=== PATIENT | female | born 1930 | race Caucasian/White ===

== ENCOUNTER 2016-10-24 09:45 | Emergency (ER) | payer OTHER ==
[2016-10-24 09:52] VITALS: TEMP 97.8; BMI 30.1
--- NOTE | 2016-10-24 10:07 | PDOC ---
History of Present Illness - General History Source: Patient, Old Records Exam Limitations: No Limitations - History of Present Illness Initial Comments: 10/24/16 10:15 The patient is a 86 year old female, with a significant past medical history of GERD, HTN, HLD, colon CA s/p removal of tumor and anxiety, who presents to the emergency department with shortness of breath since yesterday and a dry intermittent cough for a few weeks. She denies shortness of breath on exertion or orthopnea. She notes that she does have chest discomfort which she describes as a heaviness. She notes that she had cold symptoms last month. She denies any sick contacts or recent travel. She notes that she received a flu shot and a pneumonia shot this year. The patient denies headache and dizziness. Denies fever, chills, nausea, vomit, diarrhea and constipation. Denies dysuria, frequency, urgency and hematuria. Allergies: Milk, wheat, clams, egg whites, shrimp Past surgical history: TUMOR REMOVED FROM COLON Social history: No alcohol, tobacco or drug use reported PMD - Dr. Alaina Ruiz <Sg Leo - Last Filed: 10/24/16 11:15> - General History Source: Patient Exam Limitations: No Limitations <Kisha Nova - Last Filed: 10/24/16 13:27> - General Chief Complaint: Shortness of Breath Stated Complaint: COUGH, COLD Time Seen by Provider: 10/24/16 10:03 Past History <Sg Leo - Last Filed: 10/24/16 11:15> - Past Medical History GI Disorders: Yes (gerd) HTN: Yes Hypercholesterolemia: Yes Psychiatric Problems: Yes (anxeity) - Surgical History Abdominal Surgery: Yes (TUMOR REMOVED FROM COLON) - Immunization History Immunization Up to Date: Yes - Psycho/Social/Smoking Cessation Hx Anxiety: Yes Suicidal Ideation: No Smoking History: Never smoked Have you smoked in the past 12 months: No Information on smoking cessation initiated: No Hx Alcohol Use: No Drug/Substance Use Hx: No Substance Use Type: Alcohol <Kisha Nova - Last Filed: 10/24/16 13:27> - Past Medical History Allergies/Adverse Reactions: Allergies Allergy/AdvReac Type Severity Reaction Status Date / Time milk Allergy Verified 10/24/16 09:47 wheat Allergy Verified 10/24/16 09:47 CLAMS Allergy Uncoded 10/24/16 09:47 EGG WHITES Allergy Uncoded 10/24/16 09:47 SHRIMP Allergy Uncoded 10/24/16 09:47 Home Medications: Ambulatory Orders Amitriptyline HCl [Elavil -] 25 mg PO DAILY 09/22/13 Atenolol [Tenormin -] 50 mg PO DAILY 09/22/13 Losartan Potassium 50 mg PO DAILY 09/22/13 Omeprazole [Prilosec (RX)] 20 mg PO DAILY 09/22/13 Cholecalciferol (Vitamin D3) [Vitamin D] 1,000 unit PO DAILY 10/23/15 Simvastatin [Zocor -] 20 mg PO HS 10/23/15 Albuterol 0.083% Nebulizer Mary Carmen [Ventolin 0.083% Nebulizer Soln -] 1 neb NEB Q6H PRN #30 vial 10/24/16 Azithromycin [Zithromax 250mg Tablets -] 250 mg PO UTDICT #6 tab 10/24/16 Guaifenesin [Mucinex] 200 mg PO Q6H PRN #30 gran.pack 10/24/16 Nebulizer/Compressor [Belknap Choice Nebulizer] 1 each MC QID PRN #1 10/24/16 Nebulizer/Compressor [Comp-Air Elite Comp Nebulizer] 1 each MC ASDIR PRN #1 each 10/24/16 Review of Systems - Review of Systems Able to Perform ROS?: Yes Comments:: 10/24/16 10:15 GENERAL/CONSTITUTIONAL: No fever or chills. No weakness. HEAD, EYES, EARS, NOSE AND THROAT: No change in vision. No ear pain or discharge. No sore throat. CARDIOVASCULAR: +Chest discomfort and shortness of breath RESPIRATORY: No cough, wheezing, or hemoptysis. GASTROINTESTINAL: No nausea, vomiting, diarrhea or constipation. GENITOURINARY: No dysuria, frequency, or change in urination. MUSCULOSKELETAL: No joint or muscle swelling or pain. No neck or back pain. SKIN: No rash NEUROLOGIC: No headache, vertigo, loss of consciousness, or change in strength/ sensation. ENDOCRINE: No increased thirst. No abnormal weight change HEMATOLOGIC/LYMPHATIC: No anemia, easy bleeding, or history of blood clots. ALLERGIC/IMMUNOLOGIC: No hives or skin allergy. <Sg Leo Last Filed: 10/24/16 11:15> *Physical Exam - Vital Signs Last Vital Signs Temp Pulse Resp BP Pulse Ox 97.8 F 78 18 168/83 100 10/24/16 09:48 10/24/16 09:48 10/24/16 09:48 10/24/16 09:48 10/24/16 09:48 - Physical Exam Comments: 10/24/16 10:15 GENERAL: Awake, alert, and fully oriented, in no acute distress HEAD: No signs of trauma, normocephalic, atraumatic EYES: PERRLA, EOMI, sclera anicteric, conjunctiva clear ENT: Auricles normal inspection, hearing grossly normal, nares patent, oropharynx clear without exudates. Moist mucosa NECK: Normal ROM, supple, no lymphadenopathy, JVD, or masses LUNGS: No distress, speaks full sentences, clear to auscultation bilaterally HEART: Regular rate and rhythm, normal S1 and S2, no murmurs, rubs or gallops, peripheral pulses normal and equal bilaterally. ABDOMEN: Soft, nontender, normoactive bowel sounds. No guarding, no rebound. No masses EXTREMITIES: Normal inspection, Normal range of motion, no edema. No clubbing or cyanosis. NEUROLOGICAL: Cranial nerves II through XII grossly intact. Normal speech, normal gait, no focal sensorimotor deficits SKIN: Warm, Dry, normal turgor, no rashes or lesions noted. <NikitasonaliSg - Last Filed: 10/24/16 11:15> - Vital Signs Last Vital Signs Temp Pulse Resp BP Pulse Ox 97.8 F 78 18 168/83 100 10/24/16 09:48 10/24/16 09:48 10/24/16 09:48 10/24/16 09:48 10/24/16 09:48 <Kisha Nova - Last Filed: 10/24/16 13:27> ED Treatment Course - LABORATORY CBC & Chemistry Diagram: 10/24/16 10:39 10/24/16 10:39 - RADIOLOGY Radiograph Interpretation: 10/24/16 11:15 Chest X-Ray Reviewed by: Dr. Vitor Melo Impression: No acute pathology. No significant change since 04/18/2011 <Sg Leo - Last Filed: 10/24/16 11:15> - LABORATORY CBC & Chemistry Diagram: 10/24/16 10:39 10/24/16 10:39 <Kisha Nova - Last Filed: 10/24/16 13:27> Medical Decision Making - Medical Decision Making 10/24/16 10:07 A portion of this note was documented by scribe services under my direction. I have reviewed the details of the note, within reason, and agree with the documentation with the following case summary and management plan written by me. Nursing documentation reviewed and incorporated into medical decision making This is an 86-year-old female who is relatively healthy and presents emergency department with a complaint of upper respiratory infection. She status post influenza and pneumococcal vaccinations. Patient states she had an upper respiratory infection approximately 4 weeks ago. On October 06 again she developed upper respiratory infection. She has not followed up with her primary care physician. She has not taken any antibiotics. Patient states she again had these symptoms and was concerned because she has a cough, feels chest congestion No fever. No chills 10/24/16 11:51 Laboratory Tests 10/24/16 10/24/16 10:39 10:39 WBC 11.0 H D Hgb 13.9 Hct 42.2 Plt Count 235 Neutrophils % 81.6 D Lymphocytes % 11.2 D BUN 12 D Creatinine 0.9 D CXR negative 10/24/16 13:13 Laboratory Tests 10/24/16 10:39 Creatine Kinase 35 Troponin I < 0.02 Patient seen in the ER by Dr. Ruiz. Plan Will be for discharge on azithromycin, Mucinex Patient can also take albuterol if she finds is helpful. Patient was asked to follow up with Dr. Ruiz next week. I've asked patient to take her temperature, return to the ER for any other concerns or complaints. I discussed the physical exam findings, ancillary test results and final diagnoses with the patient. I answered all of the patient's questions. The patient was satisfied with the care received and felt comfortable with the discharge plan and treatment plan. The patient will call their primary care physician within 24 hours to arrange follow-up and will return to the Emergency Department with any new, persistent or worsening symptoms. <Kisha Nova - Last Filed: 10/24/16 13:27> *DC/Admit/Observation/Transfer - Attestations Scribe Attestion: 10/24/16 10:15 Documentation prepared by Sg Leo, acting as medical billing supervisor for Kisha Nova MD. <Sg Leo - Last Filed: 10/24/16 11:15> - Discharge Dispostion Admit: No <Kisha Nova - Last Filed: 10/24/16 13:27> Diagnosis at time of Disposition: Bronchitis - Discharge Dispostion Disposition: HOME Condition at time of disposition: Improved - Prescriptions Prescriptions: Nebulizer/Compressor [[place]kn[place] Choice Nebulizer] 1 each MC QID PRN #1 PRN Reason: Wheezing Nebulizer/Compressor [Comp-Air Elite Comp Nebulizer] 1 each MC ASDIR PRN #1 each PRN Reason: congestion Guaifenesin [Mucinex] 200 mg PO Q6H PRN #30 gran.pack PRN Reason: cough and congestion Albuterol 0.083% Nebulizer Mary Camren [Ventolin 0.083% Nebulizer Soln -] 1 neb NEB Q6H PRN #30 vial PRN Reason: Wheezing Azithromycin [Zithromax 250mg Tablets -] 250 mg PO UTDICT #6 tab - Referrals Referrals: Alaina Yancey MD [Primary Care Provider] - - Patient Instructions Printed Discharge Instructions: DI for Acute Bronchitis, DI for Viral Upper Respiratory Infection -- Adult Additional Instructions: Ilana Thank you for coming in to the ER Please monitor yourself for fevers and chills If you are short of breath you must return to the ER Please please remember to follow up with Dr Yancey next week
[2016-10-24 10:45] LABS: BASOPHIL 0.4 % (0-2.0); EOSINOPHIL 2.5 % (0-4.5); MCHC 32.9 g/dl (32.0-36.0); MEAN CELL VOLUME 88.1 fl (80-96); MEAN PLT VOLUME 8.2 fl (7.5-11.1); NEUTROPHILS 81.6 % (42.8-82.8); PLATELET COUNT 235 K/MM3 (134-434); RDW 14.5 % (11.6-15.6)
[2016-10-24 11:10] LABS: ALBUMIN 3.9 g/dl (3.4-5.0); ALK PHOS 70 U/L (45-117); ANION GAP 7 (8-16); BILIRUBIN,TOTAL 0.5 mg/dL (0.2-1.0); CALCIUM 9.6 mg/dL (8.5-10.1); CO2 30 mmol/L (21-32); CREATININE 0.9 mg/dL (0.55-1.02); GLUCOSE,RANDOM 113 mg/dL (74-106); SGOT/AST 11 U/L (15-37); SGPT/ALT 19 U/L (12-78); TOT PROT 7.4 g/dl (6.4-8.2)
[2016-10-24 12:23] LABS: TROPONIN I < 0.02 ng/ml (0.00-0.05)
[2016-10-24 13:41] VITALS: BP 155/74; PULSE 75
== END 2016-10-24 13:40 | disposition home or self-care (01) ==
LOC: JER 09:45
DX: J40 Bronchitis, not specified as acute or chronic (principal); I10 Essential (primary) hypertension; E78.00 Pure hypercholesterolemia, unspecified; K21.9 Gastro-esophageal reflux disease without esophagitis; F41.9 Anxiety disorder, unspecified
CPT/HCPCS: 36415; 71020-TC; 80053; 82550; 84484; 85025; 99283-25

== ENCOUNTER 2016-10-26 12:48 | Emergency (ER) | payer OTHER ==
--- NOTE | 2016-10-26 13:03 | PDOC ---
History of Present Illness <Pillo Huddleston - Last Filed: 10/26/16 16:31> - History of Present Illness Initial Comments: 10/26/16 16:35 Patient is an 86 year old female with significant medical hx of GERD, HTN, HLD, colon CA s/p removal of tumor and anxiety who is presenting to the ED with diarrhea and lightheaded since yesterday. Patient was seen in the ED on for cough and discharged on azithromycin and mucinex. Since starting antibiotic treatment that day, the patient has had multiple episodes of diarrhea and one episode of vomiting. The patient is associating her symptoms with her antibiotic treatment; she states that shes never taken azithromycin before. Patient notes that her cough has been improving since starting medication. Denies fever, chills, abdominal pain, blood in stool. Allergies: Milk, wheat, clams, egg whites, shrimp Surgical Hx: colon tumor removal Social Hx: Denies alcohol, tobacco or drug use PMD: Alaina Yancey MD <Nathaly Hagen - Last Filed: 10/26/16 16:39> - General Chief Complaint: Lightheaded Stated Complaint: DIZZINESS Time Seen by Provider: 10/26/16 13:02 Past History - Past Medical History GI Disorders: Yes (gerd) HTN: Yes Hypercholesterolemia: Yes Psychiatric Problems: Yes (anxeity) - Surgical History Abdominal Surgery: Yes (TUMOR REMOVED FROM COLON) - Immunization History Immunization Up to Date: Yes - Psycho/Social/Smoking Cessation Hx Anxiety: Yes Suicidal Ideation: No Smoking History: Never smoked Have you smoked in the past 12 months: No Hx Alcohol Use: No Drug/Substance Use Hx: No Substance Use Type: Alcohol <Pillo Huddleston - Last Filed: 10/26/16 16:31> <Nathaly Hagen - Last Filed: 10/26/16 16:39> - Past Medical History Allergies/Adverse Reactions: Allergies Allergy/AdvReac Type Severity Reaction Status Date / Time milk Allergy Verified 10/26/16 13:06 wheat Allergy Verified 10/26/16 13:06 CLAMS Allergy Uncoded 10/26/16 13:06 EGG WHITES Allergy Uncoded 10/26/16 13:06 SHRIMP Allergy Uncoded 10/26/16 13:06 Home Medications: Ambulatory Orders Amitriptyline HCl [Elavil -] 25 mg PO DAILY 09/22/13 Atenolol [Tenormin -] 50 mg PO DAILY 09/22/13 Losartan Potassium 50 mg PO DAILY 09/22/13 Omeprazole [Prilosec (RX)] 20 mg PO DAILY 09/22/13 Cholecalciferol (Vitamin D3) [Vitamin D] 1,000 unit PO DAILY 10/23/15 Simvastatin [Zocor -] 20 mg PO HS 10/23/15 Albuterol 0.083% Nebulizer Mary Carmen [Ventolin 0.083% Nebulizer Soln -] 1 neb NEB Q6H PRN #30 vial 10/24/16 Azithromycin [Zithromax 250mg Tablets -] 250 mg PO UTDICT #6 tab 10/24/16 Guaifenesin [Mucinex] 200 mg PO Q6H PRN #30 gran.pack 10/24/16 Nebulizer/Compressor [Comp-Air Elite Comp Nebulizer] 1 each MC ASDIR PRN #1 each 10/24/16 Cephalexin Monohydrate [Keflex -] 500 mg PO Q6H #40 capsule 10/26/16 Lactobacillus Rhamnosus GG [Culturelle] 1 each PO BID #60 capsule 10/26/16 Review of Systems - Review of Systems Comments:: 10/26/16 16:36 GENERAL/CONSTITUTIONAL: No fever or chills. No weakness. HEAD, EYES, EARS, NOSE AND THROAT: No change in vision. No ear pain or discharge. No sore throat. CARDIOVASCULAR: Lightheadedness. No chest pain or shortness of breath. RESPIRATORY: Cough. No wheezing or hemoptysis. GASTROINTESTINAL: Vomiting, diarrhea. No abdominal pain, diarrhea or constipation. GENITOURINARY: No dysuria, frequency, or change in urination. MUSCULOSKELETAL: No joint or muscle swelling or pain. No neck or back pain. SKIN: No rash NEUROLOGIC: No headache, vertigo, loss of consciousness, or change in strength/ sensation. <Nathaly Hagen - Last Filed: 10/26/16 16:39> *Physical Exam - Vital Signs Last Vital Signs Temp Pulse Resp BP Pulse Ox 97.4 F L 68 20 159/73 99 10/26/16 13:07 10/26/16 14:31 10/26/16 13:07 10/26/16 14:31 10/26/16 13:07 - Physical Exam Comments: 10/26/16 16:37 GENERAL: Awake, alert, and fully oriented, in no acute distress HEAD: No signs of trauma EYES: PERRLA, EOMI, sclera anicteric, conjunctiva clear ENT: Auricles normal inspection, hearing grossly normal, nares patent, oropharynx clear without exudates. Moist mucosa NECK: Normal ROM, supple, no lymphadenopathy, JVD, or masses LUNGS: Breath sounds equal, clear to auscultation bilaterally. No wheezes, and no crackles HEART: Regular rate and rhythm, normal S1 and S2, no murmurs, rubs or gallops ABDOMEN: Soft, nontender, normoactive bowel sounds. No guarding, no rebound. No masses EXTREMITIES: Normal range of motion, no edema. No clubbing or cyanosis. No cords, erythema, or tenderness NEUROLOGICAL: Cranial nerves II through XII grossly intact. Normal speech, normal gait SKIN: Warm, Dry, normal turgor, no rashes or lesions noted. ENDOCRINE: No increased thirst. No abnormal weight change. HEMATOLOGIC/LYMPHATIC: No anemia, easy bleeding, or history of blood clots. ALLERGIC/IMMUNOLOGIC: No hives or skin allergy. <Nathaly Hagen - Last Filed: 10/26/16 16:39> ED Treatment Course - LABORATORY CBC & Chemistry Diagram: 10/26/16 13:42 10/26/16 13:42 <Pillo Huddleston - Last Filed: 10/26/16 16:31> - LABORATORY CBC & Chemistry Diagram: 10/26/16 13:42 10/26/16 13:42 - ADDITIONAL ORDERS Additional order review: Laboratory Results 10/26/16 10/26/16 10/26/16 13:42 13:42 13:42 INR 1.04 Sodium 136 Potassium 4.5 Chloride 99 Carbon Dioxide 27 Anion Gap 10 BUN 16 D Creatinine 0.7 D Creat Clearance w eGFR > 60 Random Glucose 100 Calcium 9.0 Total Bilirubin 0.5 AST 35 D ALT 17 Alkaline Phosphatase 62 Total Protein 7.0 Albumin 3.4 Lipase 85 Urine Color Yellow Urine Appearance Cloudy Urine pH 6.0 Ur Specific [place] 1.008 Urine Protein Negative Urine Glucose (UA) Negative Urine Ketones Negative Urine Blood Negative Urine Nitrite Negative Urine Bilirubin Negative Urine Urobilinogen Negative Ur Leukocyte Esterase 3+ H D Urine RBC 2 Urine WBC 61 Ur Epithelial Cells Rare Urine Bacteria Many 10/26/16 14:30 Clostridium difficile Antigen (KEKE) - Final Stool Clostridium difficile Toxin Assay - Final 10/26/16 13:42 RBC 4.60 MCV 87.5 MCHC 33.2 RDW 14.3 MPV 8.8 Neutrophils % 76.0 Lymphocytes % 14.7 D Monocytes % 5.6 Eosinophils % 3.2 Basophils % 0.5 - RADIOLOGY Radiograph Interpretation: 10/26/16 16:[address] Impression: Moderate atrophy. No gross evidence of a focal intracranial lesion or hemorrhage is seen. Reported By: Boston Hillman MD - Medications Given in the ED: ED Medications Discontinued Medications Generic Name Dose Route Start Last Admin Trade Name Freq PRN Reason Stop Dose Admin Sodium Chloride 1,000 mls @ 1,000 mls/hr 10/26/16 13:38 10/26/16 14:10 Normal Saline - IV 10/26/16 14:37 1,000 mls/hr ASDIR STA Administration Ondansetron HCl 4 mg 10/26/16 13:38 10/26/16 14:10 Zofran Injection IVPUSH 10/26/16 13:39 4 mg ONCE ONE Administration <Nathaly Hagen - Last Filed: 10/26/16 16:39> *DC/Admit/Observation/Transfer - Discharge Dispostion Admit: No - Attestations Physician Attestion: 10/26/16 13:03 I, Dr. Pillo Huddleston, attest that this document has been prepared under my direction and personally reviewed by me in its entirety. I further attest, that it accurately reflects all work, treatment, procedures and medical decision -making performed by me. <Pillo Huddleston - Last Filed: 10/26/16 16:31> - Attestations Scribe Attestion: 10/26/16 16:39 Documentation prepared by Nathaly Hagen, acting as medical planner for Pillo Huddleston MD. <Nathaly Hagen - Last Filed: 10/26/16 16:39> Diagnosis at time of Disposition: UTI (urinary tract infection) Qualifiers: Urinary tract infection type: site unspecified Hematuria presence: without hematuria Qualified Code(s): N39.0 - Urinary tract infection, site not specified - Referrals Referrals: Alaina Yancey MD [Primary Care Provider] - - Patient Instructions Printed Discharge Instructions: DI for Urinary Tract Infection (UTI) Additional Instructions: Ilana........ Sorry that you have diarrhea. Please stop the Zithromax you got here the other day. It looks like you have a urinary tract infection so we are going to put you on another antibiotic. It is important that you eat lots of yogurt while you are taking the antibiotic..... that will keep you from having diarrhea. Follow up with your doctor next week. Return to us if problems. Best- Dr. Pillo Huddleston
[2016-10-26 13:14] VITALS: PULSE 68; TEMP 97.4; BMI 28.8
[2016-10-26] MEDS ORDERED: ONDANSETRON 4 MG/2 ML VIAL IVPUSH ONE (13:38)
[2016-10-26] MEDS ORDERED: SODIUM CHLORIDE 1,000 ML IV STA (13:38)
[2016-10-26] MEDS ORDERED: ONDANSETRON 4 MG/2 ML VIAL ONE (13:52)
[2016-10-26 14:15] LABS: BASOPHIL 0.5 % (0-2.0); EOSINOPHIL 3.2 % (0-4.5); MCHC 33.2 g/dl (32.0-36.0); MEAN CELL VOLUME 87.5 fl (80-96); MEAN PLT VOLUME 8.8 fl (7.5-11.1); PLATELET COUNT 232 K/MM3 (134-434); RDW 14.3 % (11.6-15.6); WHITE BLOOD COUNT 9.2 K/mm3 (4.0-10.0)
[2016-10-26 14:33] VITALS: BP 159/73
[2016-10-26 14:41] LABS: ALBUMIN 3.4 g/dl (3.4-5.0); ANION GAP 10 (8-16); CO2 27 mmol/L (21-32); CREATININE 0.7 mg/dL (0.55-1.02); GLUCOSE,RANDOM 100 mg/dL (74-106); SGPT/ALT 17 U/L (12-78)
[2016-10-26 14:42] LABS: ALK PHOS 62 U/L (45-117); BILIRUBIN,TOTAL 0.5 mg/dL (0.2-1.0)
[2016-10-26 14:45] LABS: SGOT/AST 35 U/L (15-37)
--- NOTE | 2016-10-26 14:45 | EKG ---
Test Reason : Blood Pressure : / mmHG Vent. Rate : 064 BPM Atrial Rate : 064 BPM P-R Int : 210 ms QRS Dur : 086 ms QT Int : 410 ms P-R-T Axes : 016 -11 -01 degrees QTc Int : 422 ms SINUS RHYTHM WITH 1ST DEGREE A-V BLOCK POSSIBLE ANTERIOR INFARCT (CITED ON OR BEFORE 02-MAY-2011) ABNORMAL ECG WHEN COMPARED WITH ECG OF 02-MAY-2011 14:08, NO SIGNIFICANT CHANGE WAS FOUND Confirmed by OLAYINKA CASEY MD ([id number]) on 10/26/2016 2:45:08 PM Referred By: Confirmed By:OLAYINKA CASEY MD
[2016-10-26 14:54] LABS: INR 1.04 (0.82-1.09); PROTHROMBIN TIME (PATIENT) 11.5 SEC (9.98-11.88)
[2016-10-26] MEDS ORDERED: ALBUTEROL SO4 2.5/IPRATROPIUM 0.5 INH SOL 3 ML VIAL.NEB. NEB ONE (15:15)
[2016-10-26] MEDS ORDERED: ALBUTEROL SO4 0.083% IH SOL 2.5 MG/3 ML VIAL.NEB. NEB ONE (15:15)
[2016-10-26 16:03] LABS: URINE APPEARANCE CLOUDY; URINE BILIRUBIN NEGATIVE (NEGATIVE); URINE BLOOD NEGATIVE (NEGATIVE); URINE COLOR YELLOW; URINE GLUCOSE (UA) NEGATIVE (NEGATIVE); URINE KETONE NEGATIVE (NEGATIVE); URINE NITRITE NEGATIVE (NEGATIVE); URINE PROTEIN NEGATIVE (NEGATIVE); URINE UROBILINOGEN NEGATIVE E.U./dl (0.2-1.0)
[2016-10-26 16:09] LABS: URINE LEUK ESTERASE 3+ (NEGATIVE)
[2016-10-26 16:11] LABS: URINE BACTERIA MANY /hpf (NONE SEEN); URINE RBC 2 /hpf (0-3); URINE WBC 61 /hpf (3-5)
[2016-10-26] MEDS ORDERED: DIPHENOXYLATE 2.5/ATROPINE.025 1 COMBO TABLET PO ONE (16:26)
[2016-10-26] MEDS ORDERED: LOPERAMIDE HCL 2 MG CAPSULE ONE (16:26)
[2016-10-26] MEDS ORDERED: CEPHALEXIN MONOHYDRATE 250 MG CAPSULE (FP) ONE (16:37)
[2016-10-26] MEDS ORDERED: DIPHENOXYLATE 2.5/ATROPINE.025 1 COMBO TABLET ONE (16:37)
[2016-10-26] MEDS ORDERED: CEPHALEXIN MONOHYDRATE 500 MG CAPSULE (UD) PO ONE (16:44)
[2016-10-26] MEDS ORDERED: CEPHALEXIN MONOHYDRATE 500 MG CAPSULE (UD) PO SCH (22:00)
== END 2016-10-26 17:20 | disposition home or self-care (01) ==
LOC: JER 12:48
PROC: 3E033GC Introduction of Other Therapeutic Substance into Peripheral Vein, Percutaneous Approach (ICD-10-PCS; principal; 2016-10-26)
DX: N39.0 Urinary tract infection, site not specified (principal); I10 Essential (primary) hypertension; E78.00 Pure hypercholesterolemia, unspecified; K21.9 Gastro-esophageal reflux disease without esophagitis; F41.9 Anxiety disorder, unspecified; Z85.038 Personal history of other malignant neoplasm of large intestine
CPT/HCPCS: 36415; 70450-TC; 80053; 81003; 81015; 83690; 85025; 85610; 87086; 87186; 87324; 87449; 93005; 93010; 99284-25

== ENCOUNTER 2018-06-17 11:10 | Emergency (ER) | payer OTHER ==
[2018-06-17 11:15] VITALS: TEMP 98.1; BMI 28.3
--- NOTE | 2018-06-17 11:59 | PDOC ---
History of Present Illness - General Chief Complaint: Lightheaded Stated Complaint: PCP SENT Time Seen by Provider: 06/17/18 11:59 - History of Present Illness Initial Comments: 87 year old female with PMHx of GERD, HTN, HLD, vertigo (medication refractory) , colon CA s/p removal of tumor and anxiety presenting with a few episodes she states are consistent with her vertigo and painful redness over her left ear and the back of her head. She discussed her symptoms with Dr. Alaina Ruiz this morning and she was advised to come to the ED. SHe has many allergies and denies any exposure to new 06/17/18 12:00 Past History - Past Medical History Allergies/Adverse Reactions: Allergies Allergy/AdvReac Type Severity Reaction Status Date / Time milk Allergy Verified 06/17/18 11:12 wheat Allergy Verified 06/17/18 11:12 CLAMS Allergy Uncoded 06/17/18 11:12 EGG WHITES Allergy Uncoded 06/17/18 11:12 SHRIMP Allergy Uncoded 06/17/18 11:12 Home Medications: Ambulatory Orders Amitriptyline HCl [Elavil -] 25 mg PO DAILY 09/22/13 Atenolol [Tenormin -] 50 mg PO DAILY 09/22/13 Losartan Potassium 50 mg PO DAILY 09/22/13 Omeprazole [Prilosec (RX)] 20 mg PO DAILY 09/22/13 Cholecalciferol (Vitamin D3) [Vitamin D] 1,000 unit PO DAILY 10/23/15 Simvastatin [Zocor -] 20 mg PO HS 10/23/15 Albuterol 0.083% Nebulizer Mary Carmen [Ventolin 0.083% Nebulizer Soln -] 1 neb NEB Q6H PRN #30 vial 10/24/16 Azithromycin [Zithromax 250mg Tablets -] 250 mg PO UTDICT #6 tab 10/24/16 Guaifenesin [Mucinex] 200 mg PO Q6H PRN #30 gran.pack 10/24/16 Nebulizer and Compressor [Comp-Air Elite Comp Nebulizer] 1 each MC ASDIR PRN #1 each 10/24/16 Cephalexin Monohydrate [Keflex -] 500 mg PO Q6H #40 capsule 10/26/16 Lactobacillus Rhamnosus GG [Culturelle] 1 each PO BID #60 capsule 10/26/16 COPD: No GI Disorders: Yes (gerd) HTN: Yes Hypercholesterolemia: Yes Psychiatric Problems: Yes (anxeity) Other medical history: VERTIGO - Surgical History Abdominal Surgery: Yes (TUMOR REMOVED FROM COLON) - Immunization History Immunization Up to Date: Yes - Suicide/Smoking/Psychosocial Hx Smoking History: Never smoked Have you smoked in the past 12 months: No Information on smoking cessation initiated: No Hx Alcohol Use: No Drug/Substance Use Hx: No Substance Use Type: Alcohol Review of Systems - Review of Systems Constitutional: No: Chills, Fever HEENTM: No: Eye Pain, Blurred Vision, Recent change in vision Respiratory: No: Cough, Orthopnea Cardiac (ROS): No: Chest Pain, Edema, Lightheadedness, Palpitations ABD/GI: No: Diarrhea, Nausea, Vomiting : No: Burning, Dysuria, Discharge, Frequency Musculoskeletal: No: Back Pain, Joint Pain Integumentary: Yes: Bruising, Lesions, Pruritus, Rash Neurological: Yes: Unsteady Gait, Dizziness. No: Headache, Numbness, Tingling Psychiatric: No: Anxiety, Depression Hematologic/Lymphatic: No: Anemia, Blood Clots, Easy Bleeding *Physical Exam - Vital Signs Last Vital Signs Temp Pulse Resp BP Pulse Ox 98.1 F 76 18 122/79 100 06/17/18 11:12 06/17/18 11:12 06/17/18 11:12 06/17/18 11:12 06/17/18 11:12 - Physical Exam General Appearance: Yes: Nourished, Appropriately Dressed. No: Apparent Distress HEENT: positive: EOMI, SUMAN, Normal ENT Inspection, Normal Voice Neck: positive: Trachea midline, Normal Thyroid, Supple. negative: Tender, Rigid Respiratory/Chest: positive: Lungs Clear, Normal Breath Sounds. negative: Chest Tender, Respiratory Distress, Accessory Muscle Use Cardiovascular: positive: Regular Rhythm, Regular Rate Gastrointestinal/Abdominal: positive: Normal Bowel Sounds, Flat, Soft. negative : Tender Lymphatic: negative: Adenopathy, Tenderness Musculoskeletal: positive: Normal Inspection. negative: Decreased Range of Motion Extremity: positive: Normal Capillary Refill, Normal Inspection, Normal Range of Motion. negative: Tender Integumentary: positive: Normal Color, Dry, Warm, Rash (Slight swelling and warmth over left ear without concern for active infection. symmetric bilateral facial erythema on upper face. Small pruritic circular lesions on base of scalp that are not raised, inudrateed, or concernign for infection) Neurologic: positive: Fully Oriented, Alert, Normal Mood/Affect, Normal Response , Motor Strength 01/05 ED Treatment Course - LABORATORY CBC & Chemistry Diagram: 06/17/18 12:41 06/17/18 12:41 Medical Decision Making - Medical Decision Making 87 year old female with PMH of many allergies and vertio presenting with a few episodes of falling sensation without syncope or actual fall consistent with her previous history of vertigo. Also complains of a pruritic rash on her left ear and base of her scalp. Patient are her baseline level of ambulation without active symptoms and rash does not appear infect. VSS. All labs returned WNL and rash slightly improved after Benadryl administration. Patient DC'd home with follow up instructions with her PCP/ neurologist to better control her vertigo ( although she admits medication has not helped her in the past) and return precautions as well as coaching on using her walker more frequently. *DC/Admit/Observation/Transfer Diagnosis at time of Disposition: Rash and nonspecific skin eruption - Discharge Dispostion Disposition: HOME Condition at time of disposition: Improved Decision to Admit order: No - Referrals Referrals: Alaina Yancey MD [Primary Care Provider] - - Patient Instructions Printed Discharge Instructions: DI for Rash Additional Instructions: This may be an allergic reaction or it may be something else that requires evaluation by a maintenance service supervisor. Please follow up with Dr. Joseph crespo dermatology referral if needed. Please use Benadryl for the itching. Please do not drive if you use Benadryl. You can use Tylenol for the pain. Please return to the ED if you have any other new or worsening symptoms. - Post Discharge Activity
--- NOTE | 2018-06-17 12:14 | PDOC ---
Attending Attestation - Resident Resident Name: Xiao Sparks - ED Attending Attestation I have performed the following: I have examined & evaluated the patient, The case was reviewed & discussed with the resident, I agree w/resident's findings & plan, Exceptions are as noted - HPI HPI: 06/17/18 13:44 The patient is a 87 year old female, with a significant past medical history of vertigo, GERD, HTN, HLD, colon CA (s/p removal of tumor), and anxiety , who presents to the emergency department with, a rash and multiple of dizziness. Patient describes her rash as erythematous, itchy, and localized to the left ear , base of the neck, face, and left ear. The patient also endorses 3 episodes of dizziness where she felt like she would fall. She notes her symptoms are similar to her episodes of vertigo but, more frequent. She denies recent fevers, chills, or headache. She denies recent nausea, vomit, diarrhea or constipation. She denies recent dysuria, frequency, urgency or hematuria. She denies recent chest pain or shortness of breath. Allergies: Milk, wheat, clams, egg whites, shrimp Past surgical history: colon tumor removal. Social history: Nonsmoker. Denies EtOH use and recreational drug use. Primary Care Physician: Dr. Alaina Ruiz Attestations - Attestations 06/17/18 13:45 Documentation prepared by Liliane Tomas, acting as medical records specialist for Sharona Manrique MD.
[2018-06-17] MEDS ORDERED: diphenhydrAMINE HCL 25 MG CAPSULE (FP) PO ONE ×2 (12:30→12:37)
[2018-06-17 13:04] LABS: BASO % 0.4 % (0-2.0); EOS % 1.5 % (0-4.5); HEMATOCRIT 41.4 % (32.4-45.2); HEMOGLOBIN 13.9 GM/dL (10.7-15.3); LYMPH % 18.5 % (8-40); MCH 29.5 pg (25.7-33.7); MCHC 33.5 g/dl (32.0-36.0); MEAN CELL VOLUME 87.8 fl (80-96); MEAN PLT VOLUME 7.8 fl (7.5-11.1); MONO % 10.9 % (3.8-10.2); NEUT % 68.7 % (42.8-82.8); PLATELET COUNT 247 K/MM3 (134-434); RBC 4.72 M/mm3 (3.60-5.2); RDW 14.7 % (11.6-15.6); WHITE BLOOD COUNT 5.9 K/mm3 (4.0-10.0)
[2018-06-17 13:31] LABS: ALBUMIN 3.5 g/dl (3.4-5.0); ALK PHOS 73 U/L (45-117); ANION GAP 2 MMOL/L (8-16); BILIRUBIN,TOTAL 0.5 mg/dL (0.2-1); BLOOD UREA NITROGEN 14 mg/dL (7-18); CALCIUM 10.2 mg/dL (8.5-10.1); CHLORIDE 99 mmol/L (98-107); CO2 31 mmol/L (21-32); CREATININE 0.7 mg/dL (0.55-1.3); GLUCOSE,RANDOM 102 mg/dL (74-106); POTASSIUM 4.3 mmol/L (3.5-5.1); SGOT/AST 12 U/L (15-37); SGPT/ALT 17 U/L (13-61); SODIUM 131 mmol/L (136-145)
[2018-06-17 14:13] VITALS: BP 150/79; PULSE 65
--- NOTE | 2018-06-18 13:05 | EKG ---
Test Reason : Blood Pressure : / mmHG Vent. Rate : 065 BPM Atrial Rate : 065 BPM P-R Int : 252 ms QRS Dur : 086 ms QT Int : 392 ms P-R-T Axes : 067 -10 002 degrees QTc Int : 407 ms SINUS RHYTHM WITH 1ST DEGREE A-V BLOCK LOW VOLTAGE QRS ABNORMAL ECG WHEN COMPARED WITH ECG OF 26-OCT-2016 14:32, NO SIGNIFICANT CHANGE WAS FOUND Confirmed by MD WHIT, DOLLY ([id number]) on 06/18/2018 1:05:12 PM Referred By: Confirmed By:DOLLY SHERMAN MD
== END 2018-06-17 14:12 | disposition home or self-care (01) ==
LOC: JER 11:10
DX: R21 Rash and other nonspecific skin eruption (principal); I10 Essential (primary) hypertension; E78.00 Pure hypercholesterolemia, unspecified; K21.9 Gastro-esophageal reflux disease without esophagitis; R41.9 Unspecified symptoms and signs involving cognitive functions and awareness; Z85.038 Personal history of other malignant neoplasm of large intestine
CPT/HCPCS: 36415; 80053; 84484; 85025; 93005; 93010; 99282-25

== ENCOUNTER 2018-08-16 10:33 | Emergency (ER) | payer OTHER ==
[2018-08-16 10:38] VITALS: TEMP 97.4; BMI 28.3
--- NOTE | 2018-08-16 11:32 | PDOC ---
Attending Attestation - Resident Resident Name: Alex Montague - ED Attending Attestation I have performed the following: I have examined & evaluated the patient, The case was reviewed & discussed with the resident, I agree w/resident's findings & plan, Exceptions are as noted - HPI HPI: 08/16/18 12:05 88y F hx of htn, hl, vertigo, presents with 2 weeks of nonproductive cough. The patient states that she had some nasal congestion approximately 2 weeks ago with a mild productive cough the symptoms seemed to improve after sure. At times about 2 days ago the cough came back however was a dry cough. The patient endorses a couple of episodes of waking up sweaty at night last week however that is since resolved. The patient denies any chest pain, dyspnea exertion, leg swelling, hemoptysis, calf pain no recent travel or known sick contacts. The patient came today as a cough was not going away. The patient denies any diarrhea, melena, BPR, current headache, vision changes, current dizziness. The patient does endorses at intermittent episodes of room spinning dizziness that comes sporadically it does seem to have come more frequently in the past 2 weeks with her URI which is typical for her. She denies any dizziness at this time the patient denies any focal weakness, numbness, tingling, vision changes, speech changes . PMD: Dr. Yancey GENERAL: The patient is awake, alert, and fully oriented, Nontoxic - in no acute distress. HEAD: Normocephalic, atraumatic. EYES: extraocular movements intact, sclera anicteric, conjunctiva clear. ENT: Normal voice, Moist mucous membranes. NECK: Normal range of motion, supple LUNGS: Breath sounds equal, clear to auscultation bilaterally. No wheezes, no rhonchi, no rales. speaking complete sentences HEART: Regular rate and rhythm, normal S1 and S2 without murmur, rub or gallop. ABDOMEN: Soft, nontender, normoactive bowel sounds. No guarding, no rebound. . No CVA tenderness EXTREMITIES: Normal range of motion, trace pitting edema. neg homans, no calf tenderness NEUROLOGICAL: No facial assymetry, Normal speech, moving all 4 ext spontaneously and symmetrically PSYCH: Normal mood, normal affect. SKIN: Warm, Dry, normal turgor, suspect viral URI normal exam will ck labs to r/o metabolic dernagement, anemia, leukocytosis screening ekg cxr to r/o pna if neg anticipate dc with pmd fu - Physicial Exam PE: 08/17/18 08:23 see above - Medical Decision Making 08/16/18 16:23 labs, cxr negative ua c/w UTI will treat with abx will dc with pmd fu return precautions were discussed
--- NOTE | 2018-08-16 11:50 | PDOC ---
History of Present Illness - General Chief Complaint: Lightheaded Stated Complaint: DIZZINESS Time Seen by Provider: 08/16/18 11:00 History Source: Patient Exam Limitations: No Limitations - History of Present Illness Initial Comments: 08/16/18 11:46 The patient is an 88F with a PMH of GERD, HTN, HLD, vertigo (medication refractory), colon CA s/p removal of tumor and anxiety who presents to the ER with complaints of cough. The patient states that she's had a cough x 2 weeks. She states that during these two weeks, she had woken up one night with night sweats. She denies SOB, lightheadedness, CP, current fever, chills, nausea, vomiting, dysuria. Past History - Past Medical History Allergies/Adverse Reactions: Allergies Allergy/AdvReac Type Severity Reaction Status Date / Time clams Allergy Verified 08/16/18 13:10 corn Allergy Verified 08/16/18 13:12 milk Allergy Verified 08/16/18 10:38 peanut Allergy Verified 08/16/18 13:12 soybean Allergy Verified 08/16/18 13:12 walnut Allergy Verified 08/16/18 13:12 wheat Allergy Verified 08/16/18 10:38 CLAMS Allergy Uncoded 08/16/18 10:38 EGG WHITES Allergy Uncoded 08/16/18 10:38 SHRIMP Allergy Uncoded 08/16/18 10:38 Home Medications: Ambulatory Orders Amitriptyline HCl [Elavil -] 25 mg PO DAILY 09/22/13 Atenolol [Tenormin -] 50 mg PO DAILY 09/22/13 Losartan Potassium 50 mg PO DAILY 09/22/13 Cholecalciferol (Vitamin D3) [Vitamin D] 1,000 unit PO DAILY 10/23/15 Simvastatin [Zocor -] 20 mg PO HS 10/23/15 Hydrochlorothiazide [Hctz -] 12.5 mg PO DAILY 08/16/18 Meloxicam 7.5 mg PO DAILY 08/16/18 Omeprazole 20 mg PO DAILY 08/16/18 Polyethylene Glycol 3350 [Purelax] 17 gm PO DAILY 08/16/18 Sulfamethoxazole/Trimethoprim [Bactrim Ds -] 1 tab PO BID #14 tablet 08/16/18 COPD: No CHF: No GI Disorders: Yes (gerd) HTN: Yes Hypercholesterolemia: Yes Psychiatric Problems: Yes (anxeity) - Surgical History Abdominal Surgery: Yes (TUMOR REMOVED FROM COLON) - Immunization History Immunization Up to Date: Yes - Suicide/Smoking/Psychosocial Hx Smoking History: Never smoked Have you smoked in the past 12 months: No Information on smoking cessation initiated: No Hx Alcohol Use: No Drug/Substance Use Hx: No Substance Use Type: Alcohol Review of Systems - Review of Systems Able to Perform ROS?: Yes Comments:: 08/16/18 13:34 GENERAL/CONSTITUTIONAL: Positive for resolved night sweats. No fever or chills. No weakness. HEAD, EYES, EARS, NOSE AND THROAT: No change in vision. No ear pain or discharge. No sore throat. CARDIOVASCULAR: No chest pain, palpitations, or lightheadedness. RESPIRATORY: Positive for cough. No wheezing, shortness of breath, or hemoptysis. GASTROINTESTINAL: No nausea, vomiting, diarrhea, constipation, or abdominal pain. GENITOURINARY: No dysuria, frequency, hematuria, or change in urination. MUSCULOSKELETAL: No joint or muscle swelling or pain. No neck or back pain. SKIN: No rash or lesions. NEUROLOGIC: No headache, numbness, tingling, focal weakness, loss of consciousness, or change in strength/sensation. Is the patient limited Hungarian proficient: No *Physical Exam - Vital Signs Last Vital Signs Temp Pulse Resp BP Pulse Ox 97.4 F L 72 16 166/68 100 08/16/18 10:35 08/16/18 10:35 08/16/18 10:35 08/16/18 10:35 08/16/18 10:35 - Physical Exam Comments: 08/16/18 13:35 GENERAL: Well developed, well nourished. Awake and alert. No acute distress. HEENT: Normocephalic, atraumatic. Hearing grossly normal. Moist mucous membranes. PERRLA, EOMI. No conjunctival pallor. Sclera are non-icteric. NECK: Supple. Full ROM. No JVD. CARDIOVASCULAR: Regular rate and rhythm. No murmurs, rubs, or gallops. PULMONARY: No evidence of respiratory distress. Fine crackles noted in R lower lobe. ABDOMINAL: Soft. Non-tender. Non-distended. No rebound or guarding. No organomegaly. Normoactive bowel sounds. GENITOURINARY: No CVA tenderness bilaterally. MUSCULOSKELETAL: Normal range of motion at all joints. No bony deformities or tenderness. EXTREMITIES: No cyanosis. No clubbing. 1+ pitting edema in b/l LE. No calf tenderness or swelling. SKIN: Warm and dry. Normal capillary refill. No rashes. No jaundice. NEUROLOGICAL: Alert, awake, appropriate. Cranial nerves 2-12 grossly intact. Normal speech. Gait is normal without ataxia. PSYCHIATRIC: Cooperative. Good eye contact. Appropriate mood and affect. Moderate Sedation - Procedure Monitoring Vital Signs: Procedure Monitoring Vital Signs Temperature 97.4 F L 08/16/18 10:35 Pulse Rate 72 08/16/18 10:35 Respiratory Rate 16 08/16/18 10:35 Blood Pressure 166/68 08/16/18 10:35 O2 Sat by Pulse Oximetry (%) 100 08/16/18 10:35 ED Treatment Course - LABORATORY CBC & Chemistry Diagram: 08/16/18 11:51 08/16/18 11:51 - RADIOLOGY Radiology Studies Ordered: Category Date Time Status CHEST X-RAY PORTABLE* [RAD] Stat Radiology 08/16/18 11:14 Taken Medical Decision Making - Medical Decision Making 08/16/18 13:36 The patient is an 88F with MMP who presents to the ER with complaints of cough. PE significant for fine crackles in RLL, concerning for PNA. However, pt is afebrile with stable vitals. Pending labs. CXR negative for acute pathology. 08/16/18 13:37 Labs WNL. Pending UA. 08/16/18 17:34 UA indicates UTI. Giving ceftriaxone. Will d/c with abx and PCP f/u. *DC/Admit/Observation/Transfer Diagnosis at time of Disposition: Bronchitis UTI (urinary tract infection) Qualifiers: Urinary tract infection type: site unspecified Hematuria presence: without hematuria Qualified Code(s): N39.0 - Urinary tract infection, site not specified - Discharge Dispostion Disposition: HOME Condition at time of disposition: Stable Decision to Admit order: No - Prescriptions Prescriptions: Sulfamethoxazole/Trimethoprim [Bactrim Ds -] 1 tab PO BID #14 tablet - Referrals Referrals: Alaina Yancey MD [Primary Care Provider] - - Patient Instructions Printed Discharge Instructions: DI for Acute Bronchitis Additional Instructions: Please follow up with your primary care physician in 2-3 days. Please return to the ER if you have any signs or symptoms of chest pain, shortness of breath, uncontrollable fever, chills, nausea, vomiting, numbness, tingling, or weakness in any part of your body, changes in vision, or slurred speech. Please take your medications as prescribed. Please return to the ER if symptoms persist, worsen, or new symptoms arise. - Post Discharge Activity
[2018-08-16 12:29] LABS: BASO % 0.7 % (0-2.0); EOS % 3.1 % (0-4.5); HEMATOCRIT 40.4 % (32.4-45.2); HEMOGLOBIN 14.3 GM/dL (10.7-15.3); LYMPH % 20.3 % (8-40); MCH 30.3 pg (25.7-33.7); MCHC 35.3 g/dl (32.0-36.0); MEAN CELL VOLUME 85.8 fl (80-96); MEAN PLT VOLUME 7.8 fl (7.5-11.1); MONO % 5.1 % (3.8-10.2); NEUT % 70.8 % (42.8-82.8); PLATELET COUNT 267 K/MM3 (134-434); RBC 4.71 M/mm3 (3.60-5.2); WHITE BLOOD COUNT 6.8 K/mm3 (4.0-10.0)
[2018-08-16 13:02] LABS: ALBUMIN 3.4 g/dl (3.4-5.0); ALK PHOS 71 U/L (45-117); ANION GAP 8 MMOL/L (8-16); BILIRUBIN,TOTAL 0.3 mg/dL (0.2-1); BLOOD UREA NITROGEN 15 mg/dL (7-18); CALCIUM 9.4 mg/dL (8.5-10.1); CHLORIDE 97 mmol/L (98-107); CO2 27 mmol/L (21-32); CREATININE 0.8 mg/dL (0.55-1.3); GLUCOSE,RANDOM 96 mg/dL (74-106); POTASSIUM 4.3 mmol/L (3.5-5.1); SGOT/AST 21 U/L (15-37); SGPT/ALT 21 U/L (13-61); SODIUM 132 mmol/L (136-145); TOT PROT 6.8 g/dl (6.4-8.2)
--- NOTE | 2018-08-16 13:33 | EKG ---
Test Reason : Blood Pressure : / mmHG Vent. Rate : 062 BPM Atrial Rate : 062 BPM P-R Int : 226 ms QRS Dur : 078 ms QT Int : 404 ms P-R-T Axes : -20 -17 -10 degrees QTc Int : 410 ms SINUS RHYTHM WITH 1ST DEGREE A-V BLOCK MINIMAL VOLTAGE CRITERIA FOR LVH, MAY BE NORMAL VARIANT INFERIOR INFARCT , AGE UNDETERMINED ABNORMAL ECG WHEN COMPARED WITH ECG OF 17-JUN-2018 12:42, NO SIGNIFICANT CHANGE WAS FOUND Confirmed by LORA DILLARD MD ([id number]) on 08/16/2018 1:33:27 PM Referred By: Confirmed By:LORA DILLARD MD
[2018-08-16 15:02] LABS: URINE APPEARANCE CLEAR; URINE BILIRUBIN NEGATIVE (<2.0 mg/dL); URINE COLOR STRAW; URINE GLUCOSE (UA) NEGATIVE (NEGATIVE); URINE KETONE NEGATIVE (NEGATIVE); URINE LEUK ESTERASE 3+ (NEGATIVE); URINE NITRITE NEGATIVE (NEGATIVE); URINE PROTEIN NEGATIVE (NEGATIVE); URINE UROBILINOGEN NEGATIVE mg/dL (0.2-1.0)
[2018-08-16 15:07] LABS: URINE BACTERIA MODERATE /hpf (NONE SEEN)
[2018-08-16] MEDS ORDERED: CEFTRIAXONE 1,000 MG in DEXTROSE 5%-WATER - 50 ML IVPB ONE (15:54)
[2018-08-16] MEDS ORDERED: CEFTRIAXONE 1 GM/50 ML BAG ONE (16:16)
[2018-08-16 18:11] VITALS: BP 158/72; PULSE 62
== END 2018-08-16 18:11 | disposition home or self-care (01) ==
LOC: JER 10:33
DX: J40 Bronchitis, not specified as acute or chronic (principal); N39.0 Urinary tract infection, site not specified
CPT/HCPCS: 36415; 71045-TC-FY; 80053; 81003; 81015; 85025; 87086; 87186; 93005; 93010; 96365; 99284-25

== ENCOUNTER 2019-02-11 06:10 | Emergency (ER) | payer OTHER ==
[2019-02-11 06:32] VITALS: BP 136/73; PULSE 77; TEMP 98.1; BMI 27.8
--- NOTE | 2019-02-11 07:13 | PDOC ---
History of Present Illness - General Chief Complaint: Pain Stated Complaint: ABD PAIN Time Seen by Provider: 02/11/19 07:12 - History of Present Illness Initial Comments: 87 year old female with PMHx of GERD, HTN, HLD, vertigo (medication refractory) , colon CA s/p removal of tumor and anxiety presenting with cough. Patient states the cough started on Sunday and since it had not improved, decided to come to the ED after she did not feel better. Sometimes when she coughs, she feels lower abdominal pain that is rated 7-8/10 and described as a "crushing" that resolves when the coughing stops. Denies urinary symptoms. Had an isolated episode of diarrhea yesterday but normal formed brown stool today without blood. Has passed flatulence today. No nausea or vomiting. Feels somewhat short of breath while having a coughing fit. Reporting generalized body aches and felt weak when she woke up today. She has taken a medicine that starts with a "D " (likely Dextromethorphan) with no relief of her symptoms. Endorses normal appetite. Sometimes ambulates with a walker when she feels dizzy and has not had any recent falls. Denies fever, chills, or chest pain. PCP: Dr. Alaina Yancey Past History - Past Medical History Allergies/Adverse Reactions: Allergies Allergy/AdvReac Type Severity Reaction Status Date / Time clams Allergy Verified 02/11/19 06:26 corn Allergy Verified 02/11/19 06:26 milk Allergy Verified 02/11/19 06:26 peanut Allergy Verified 02/11/19 06:26 soybean Allergy Verified 02/11/19 06:26 walnut Allergy Verified 02/11/19 06:26 wheat Allergy Verified 02/11/19 06:26 CLAMS Allergy Uncoded 02/11/19 06:26 EGG WHITES Allergy Uncoded 02/11/19 06:26 SHRIMP Allergy Uncoded 02/11/19 06:26 Home Medications: Ambulatory Orders Amitriptyline HCl [Elavil -] 25 mg PO DAILY 09/22/13 Atenolol [Tenormin -] 50 mg PO DAILY 09/22/13 Losartan Potassium 50 mg PO DAILY 09/22/13 Cholecalciferol (Vitamin D3) [Vitamin D] 1,000 unit PO DAILY 10/23/15 Simvastatin [Zocor -] 20 mg PO HS 10/23/15 Hydrochlorothiazide [Hctz -] 12.5 mg PO DAILY 08/16/18 Meloxicam 7.5 mg PO DAILY 08/16/18 Omeprazole 20 mg PO DAILY 08/16/18 Polyethylene Glycol 3350 [Purelax] 17 gm PO DAILY 08/16/18 Nitrofurantoin Macrocrystal [Macrodantin -] 100 mg PO BID #14 capsule 08/19/18 COPD: No CHF: No GI Disorders: Yes (gerd) HTN: Yes Hypercholesterolemia: Yes Psychiatric Problems: Yes (anxeity) - Surgical History Abdominal Surgery: Yes (TUMOR REMOVED FROM COLON) - Immunization History Immunization Up to Date: Yes - Suicide/Smoking/Psychosocial Hx Smoking History: Never smoked Have you smoked in the past 12 months: No Information on smoking cessation initiated: No Hx Alcohol Use: No Drug/Substance Use Hx: No Substance Use Type: Alcohol Review of Systems - Review of Systems Comments:: Constitutional: no fever, no chills HEENT: no throat pain, no dysphagia Cardiovascular: no chest pain, no palpitations Respiratory: +cough, +shortness of breath Gastrointestinal: +abdominal pain, no nausea Genitourinary: no dysuria, no frequency Musculoskeletal: +myalgia, no arthralgia Skin: no rash, no itching Neurologic: no headache, +weakness *Physical Exam - Vital Signs Last Vital Signs Temp Pulse Resp BP Pulse Ox 98.1 F 77 16 136/73 96 02/11/19 06:10 02/11/19 06:10 02/11/19 06:10 02/11/19 06:10 02/11/19 06:10 - Physical Exam Comments: General: Awake, alert, and fully oriented, in no acute distress Head: No signs of trauma Eyes: EOMI, sclera anicteric ENT: Moist mucus membranes Neck: Normal ROM, supple Lungs: Crackles present at the right lung base Cardio: Regular rhythm, S1 and S2 present Abdomen: Reducible ventral hernias present. Tender to palpation overlying area of hernias. Old surgical scars present. Soft. No guarding, no rebound. Extremities: Normal range of motion, Distal pulses present, No calf tenderness SKIN: Warm, Dry, normal turgor Neurologic: Cranial nerves II through XII grossly intact. Normal speech ED Treatment Course - LABORATORY CBC & Chemistry Diagram: 02/11/19 08:27 02/11/19 08:27 Medical Decision Making - Medical Decision Making 87 year old female with PMHx of GERD, HTN, HLD, vertigo (medication refractory) , colon CA s/p removal of tumor and anxiety presenting with cough. DDX including but not limited to PNA, bronchitis, UTI, URI, ventral hernia, incarcerated hernia Labs, CXR, EKG 1g Ofirmev Lower suspicion for incarcerated hernia as patient has had normal bowel movements and has passed flatulence today, and has not had nausea or vomiting. It is likely that patient feels abdominal pain only while coughing as the increase in intra-abdominal pressure causes her hernia to increase. Given crackles at right lung base, high suspicion for pneumonia-- if this is the case, I anticipate patient will score low on the CURB-65 and can likely be managed on an outpatient basis. 02/11/19 07:13 CBC WBC 5.7 K/mm3 (4.0-10.0) 02/11/19 08:27 RBC 4.62 M/mm3 (3.60-5.2) 02/11/19 08:27 Hgb 13.8 GM/dL (10.7-15.3) 02/11/19 08:27 Hct 41.1 % (32.4-45.2) 02/11/19 08:27 MCV 88.9 fl (80-96) 02/11/19 08:27 MCH 29.8 pg (25.7-33.7) 02/11/19 08:27 MCHC 33.5 g/dl (32.0-36.0) 02/11/19 08:27 RDW 13.8 % (11.6-15.6) 02/11/19 08:27 Plt Count 202 K/MM3 (134-434) D 02/11/19 08:27 MPV 8.2 fl (7.5-11.1) 02/11/19 08:27 Absolute Neuts (auto) 3.3 K/mm3 (1.5-8.0) 02/11/19 08:27 Neutrophils % 58.8 % (42.8-82.8) 02/11/19 08:27 Lymphocytes % 25.5 % (8-40) D 02/11/19 08:27 Monocytes % 10.1 % (3.8-10.2) D 02/11/19 08:27 Eosinophils % 5.0 % (0-4.5) H 02/11/19 08:27 Basophils % 0.6 % (0-2.0) 02/11/19 08:27 Nucleated RBC % 0 % (0-0) 02/11/19 08:27 No anemia or leukocytosis CMP Sodium 132 mmol/L (136-145) L 02/11/19 08:27 Potassium 4.1 mmol/L (3.5-5.1) 02/11/19 08:27 Chloride 96 mmol/L (98-107) L 02/11/19 08:27 Carbon Dioxide 30 mmol/L (21-32) 02/11/19 08:27 Anion Gap 7 MMOL/L (8-16) L 02/11/19 08:27 BUN 14.3 mg/dL (7-18) 02/11/19 08:27 Creatinine 0.9 mg/dL (0.55-1.3) 02/11/19 08:27 Est GFR (CKD-EPI)AfAm 67.10 02/11/19 08:27 Est GFR (CKD-EPI)NonAf 57.90 02/11/19 08:27 Random Glucose 93 mg/dL (74-106) 02/11/19 08:27 Calcium 9.7 mg/dL (8.5-10.1) 02/11/19 08:27 Total Bilirubin 0.3 mg/dL (0.2-1) 02/11/19 08:27 AST 14 U/L (15-37) L 02/11/19 08:27 ALT 17 U/L (13-61) 02/11/19 08:27 Alkaline Phosphatase 79 U/L (45-117) 02/11/19 08:27 Total Protein 7.3 g/dl (6.4-8.2) 02/11/19 08:27 Albumin 3.7 g/dl (3.4-5.0) 02/11/19 08:27 Sodium noted to be low, but this is at patient's baseline Electrolytes otherwise unremarkable Portable CXR may show some blunting of the right diaphragmatic angle, but equivocal. PA/Lat film ordered for better image. EKG: rate 66, QTc 410, NSR 02/11/19 09:36 PA/Lat with sharp diaphragmatic angles and enlarged cardiac silouhette 02/11/19 10:04 CXR: "2 views of the chest reveal a large heart, unfolded aorta, minimal atelectatic changes left base and some prominence of the superior mediastinum vertical sutures or calcifications by the right clavicular head which have been present going back to at least 08/16/2018. There are degenerative spine changes with wedging, no sign of infiltrate or failure and sharp angles. Soft tissues are intact. Since the prior study of 02/11/2019, there is no significant change other than some new atelectatic changes at the left base. Impression: Large heart. Left base atelectatic changes. See discussion above. " No pneumonia seen on imaging; cough likely due to viral syndrome Plan to discharge 02/11/19 10:47 *DC/Admit/Observation/Transfer Diagnosis at time of Disposition: Cough - Discharge Dispostion Disposition: HOME Condition at time of disposition: Stable - Referrals Referrals: Alaina Yancey MD [Primary Care Provider] - - Patient Instructions Printed Discharge Instructions: DI for Cough -- Adult Additional Instructions: You came into the emergency department for a cough. Blood work was within normal limits. Xray did not show a pneumonia. You can take [id number] tylenol or motrin for your pain. Follow the instructions on the medication bottle. Follow-up with your primary care doctor in two to three days to discuss this ED visit and to further evaluate your symptoms. Call today and make an appointment. Your workup is not complete until you do so. Immediate medical attention is required if you have: you develop swelling of the neck or tongue, stiff neck or difficulty opening the mouth, skin rash, difficulty breathing, persistent nausea or vomiting, black stool, or any new or concerning symptoms. If you think you are having an emergency, call for emergency medical services or present to the emergency department right away - Post Discharge Activity
[2019-02-11] MEDS ORDERED: ACETAMINOPHEN 1000 MG/100 ML VIAL (NON FORMULARY) IVPB ONE (08:02)
--- NOTE | 2019-02-11 08:43 | PDOC ---
Attending Attestation - Resident Resident Name: Delisa Zavaleta - ED Attending Attestation I have performed the following: I have examined & evaluated the patient, The case was reviewed & discussed with the resident, I agree w/resident's findings & plan, Exceptions are as noted - HPI HPI: 02/11/19 08:40 87yo F hx HTN, HL, GERD, colon ca s/p tumor resection, vertigo presents to the ED with cough for 5 days. Pt reports feeling soreness in her epigastric area and SOB when she coughs. The SOB and abdominal pain occur only when she is coughing. Denies productive cough. Pt has no associated fevers, chills, headache , weakness/numbness, dizziness, CP, abd pain, N/V/D, LE edema. - Physicial Exam PE: 02/11/19 17:55 agree with resident exam with the following exceptions Pleasant well appearing, non toxic pt Lungs CTAB no wheezes or crackles. Normal WOB WWP peripherally - Medical Decision Making 02/11/19 17:58 88yo F prsents to the ED with cough a/w sob and abd pain when coughing. Pt very well appearing Vitals and exam wnl CXR clear with atelectasis at LL base - no crackles auscultated on rpt exam Likely bronchitis. Pt feels well, will f/u with PMD I discussed the physical exam findings, ancillary test results and final diagnoses with the patient. I answered all of the patient's questions. The patient was satisfied with the care received and felt comfortable with the discharge plan and treatment plan. The patient will call their primary care physician within 24 hours to arrange follow-up and will return to the Emergency Department with any new, persistent or worsening symptoms. Heart Score/ECG Review #1 02/11/19 17:56 MY EKG read: NSR< rate 66. Normal axis and intervals. No BROCK. TW changes similar to EKG from 08/16/18
[2019-02-11] MEDS ORDERED: ACETAMINOPHEN INJECTION 100 ML IVPB ONE (08:50)
[2019-02-11 09:04] LABS: BASO % 0.6 % (0-2.0); HEMATOCRIT 41.1 % (32.4-45.2); HEMOGLOBIN 13.8 GM/dL (10.7-15.3); LYMPH % 25.5 % (8-40); MCH 29.8 pg (25.7-33.7); MCHC 33.5 g/dl (32.0-36.0); MEAN CELL VOLUME 88.9 fl (80-96); MEAN PLT VOLUME 8.2 fl (7.5-11.1); MONO % 10.1 % (3.8-10.2); NEUT % 58.8 % (42.8-82.8); PLATELET COUNT 202 K/MM3 (134-434); RBC 4.62 M/mm3 (3.60-5.2); RDW 13.8 % (11.6-15.6); WHITE BLOOD COUNT 5.7 K/mm3 (4.0-10.0)
[2019-02-11 09:28] LABS: ALBUMIN 3.7 g/dl (3.4-5.0); BILIRUBIN,TOTAL 0.3 mg/dL (0.2-1); BLOOD UREA NITROGEN 14.3 mg/dL (7-18); CALCIUM 9.7 mg/dL (8.5-10.1); CREATININE 0.9 mg/dL (0.55-1.3); POTASSIUM 4.1 mmol/L (3.5-5.1); TOT PROT 7.3 g/dl (6.4-8.2)
[2019-02-11 09:31] LABS: EPI CELLS 2.9 /HPF (0-5/HPF); HYALINE CASTS 2 /lpf (0-8); URINE APPEARANCE CLEAR; URINE BACTERIA 23.7 /hpf (NEGATIVE); URINE BILIRUBIN NEGATIVE (NEGATIVE); URINE COLOR YELLOW; URINE GLUCOSE (UA) NEGATIVE (NEGATIVE); URINE KETONE NEGATIVE (NEGATIVE); URINE LEUK ESTERASE TRACE (NEGATIVE); URINE NITRITE NEGATIVE (NEGATIVE); URINE PROTEIN NEGATIVE (NEGATIVE); URINE RBC 1 /hpf (0-4); URINE UROBILINOGEN 0.2 mg/dL (0.2-1.0); URINE WBC 2 /hpf (0-5)
--- NOTE | 2019-02-11 15:25 | EKG ---
Test Reason : Blood Pressure : / mmHG Vent. Rate : 066 BPM Atrial Rate : 086 BPM P-R Int : 000 ms QRS Dur : 070 ms QT Int : 392 ms P-R-T Axes : 000 -06 004 degrees QTc Int : 410 ms POOR DATA QUALITY, INTERPRETATION MAY BE ADVERSELY AFFECTED ACCELERATED JUNCTIONAL RHYTHM NONSPECIFIC ST AND T WAVE ABNORMALITY ABNORMAL ECG WHEN COMPARED WITH ECG OF 16-AUG-2018 10:55, JUNCTIONAL RHYTHM HAS REPLACED SINUS RHYTHM Confirmed by MD Vidal, Brad ([id number]) on 02/11/2019 3:25:00 PM Referred By: Confirmed By:Brad Drake MD
== END 2019-02-11 11:00 | disposition home or self-care (01) ==
LOC: JER 06:10
PROC: 3E033NZ Introduction of Analgesics, Hypnotics, Sedatives into Peripheral Vein, Percutaneous Approach (ICD-10-PCS; principal; 2019-02-11)
DX: J40 Bronchitis, not specified as acute or chronic (principal); I10 Essential (primary) hypertension; E78.5 Hyperlipidemia, unspecified; K21.9 Gastro-esophageal reflux disease without esophagitis; Z85.038 Personal history of other malignant neoplasm of large intestine
CPT/HCPCS: 36415; 71045-TC-FY; 71046-TC-FY; 80053; 81003; 85025; 87086; 93005; 93010; 96374; 99281-25; J0131

== ENCOUNTER 2019-02-13 10:28 | Emergency (ER) | payer OTHER | END 2019-02-13 16:42 | disposition home or self-care (01) | LOC: JER 10:28 ==

== ENCOUNTER 2019-02-23 17:56 | Emergency (ER) | payer OTHER ==
[2019-02-23 18:10] VITALS: BMI 28.0
--- NOTE | 2019-02-23 19:27 | PDOC ---
History of Present Illness - General Chief Complaint: Respiratory Stated Complaint: DIARRHEA/WEAK - History of Present Illness Initial Comments: 02/23/19 19:25 88 yo F with h/o HTN, HLD who p/w cough, wheezing, fatigue. Patient reports 2 weeks of worsening cough, with yellow sputum production. Also endorses general malaise. Denies SOB. Denies home O2 or duoneb requirements. Reports OTC Diphehydramine with no relief of symptoms x 1 day. Patient denies night sweats, unintentional wt. loss, BORJA, vision change, palpitations,orthopena, PND, leg swelling/pain, N/V, F,C, CP, SOB, urinary complaints, hematuria, BPR, abdominal pain, constipation, lightheadedness, sensory changes. PMHx: as noted above. Denies h/o NH, CAD, stent placement, CABG ROS: as noted SHx: Denies Etoh, IVDA, tobacco use Allergies: NKDA Past History - Past Medical History Allergies/Adverse Reactions: Allergies Allergy/AdvReac Type Severity Reaction Status Date / Time clams Allergy Verified 02/23/19 18:01 corn Allergy Verified 02/23/19 18:01 milk Allergy Verified 02/23/19 18:01 peanut Allergy Verified 02/23/19 18:01 soybean Allergy Verified 02/23/19 18:01 walnut Allergy Verified 02/23/19 18:01 wheat Allergy Verified 02/23/19 18:01 CLAMS Allergy Uncoded 02/23/19 18:01 EGG WHITES Allergy Uncoded 02/23/19 18:01 SHRIMP Allergy Uncoded 02/23/19 18:01 Home Medications: Ambulatory Orders Amitriptyline HCl [Elavil -] 25 mg PO DAILY 09/22/13 Atenolol [Tenormin -] 50 mg PO DAILY 09/22/13 Cholecalciferol (Vitamin D3) [Vitamin D] 1,000 unit PO DAILY 10/23/15 Simvastatin [Zocor -] 20 mg PO HS 10/23/15 Hydrochlorothiazide [Hctz -] 12.5 mg PO DAILY 08/16/18 Meloxicam 7.5 mg PO DAILY 08/16/18 Omeprazole 20 mg PO ASDIR 08/16/18 Polyethylene Glycol 3350 [Purelax] 17 gm PO DAILY 08/16/18 Azithromycin [Zithromax Tri-Darrian (3 DAYS) -] 500 mg PO DAILY #3 tablet 02/23/19 Cyanocobalamin [Vitamin B12 -] 1,000 mcg PO DAILY 02/23/19 Lisinopril 10 mg PO BID 02/23/19 Spirometers and Accessories [Mistassist] 1 each MC DAILY #1 each 02/23/19 COPD: No CHF: No GI Disorders: Yes (gerd) HTN: Yes Hypercholesterolemia: Yes Psychiatric Problems: Yes (anxeity) - Surgical History Abdominal Surgery: Yes (TUMOR REMOVED FROM COLON) - Immunization History Immunization Up to Date: Yes - Suicide/Smoking/Psychosocial Hx Smoking History: Never smoked Have you smoked in the past 12 months: No Hx Alcohol Use: No Drug/Substance Use Hx: No Substance Use Type: Alcohol Review of Systems - Review of Systems Comments:: 02/23/19 19:25 GENERAL/CONSTITUTIONAL: No fever or chills. HEAD, EYES, EARS, NOSE AND THROAT: No change in vision. No ear pain or discharge. No sore throat. CARDIOVASCULAR: No chest pain or shortness of breath RESPIRATORY: + cough, wheezing. No hemoptysis. GASTROINTESTINAL: No nausea, vomiting, diarrhea or constipation. GENITOURINARY: No dysuria, frequency, or change in urination. MUSCULOSKELETAL: No joint or muscle swelling or pain. No neck or back pain. SKIN: No rash NEUROLOGIC: No headache, vertigo, loss of consciousness, or change in strength/ sensation. ENDOCRINE: No increased thirst. No abnormal weight change HEMATOLOGIC/LYMPHATIC: No anemia, easy bleeding, or history of blood clots. ALLERGIC/IMMUNOLOGIC: No hives or skin allergy. *Physical Exam - Vital Signs Last Vital Signs Temp Pulse Resp BP Pulse Ox 98.3 F 90 18 139/69 99 02/23/19 17:58 02/23/19 17:58 02/23/19 17:58 02/23/19 17:58 02/23/19 17:58 - Physical Exam Comments: 02/23/19 19:25 GENERAL: Awake, alert, and fully oriented, in no acute distress HEAD: No signs of trauma, normocephalic, atraumatic EYES: PERRLA, EOMI, sclera anicteric, conjunctiva clear ENT: Hearing grossly normal, nares patent, oropharynx clear without exudates. Moist mucosa NECK: Normal ROM, supple, no lymphadenopathy, JVD, or masses LUNGS: Coarse right lung sounds, diffuse exp rhonci. No distress, speaks full sentences. HEART: Regular rate and rhythm, normal S1 and S2, no murmurs, rubs or gallops, peripheral pulses normal and equal bilaterally. ABDOMEN: Soft, nontender, normoactive bowel sounds. No guarding, no rebound. No masses EXTREMITIES : 1+ pitting edema BL. Normal inspection, Normal range of motion. No clubbing or cyanosis. NEUROLOGICAL: Cranial nerves II through XII grossly intact. Normal speech, normal gait, no focal sensorimotor deficits SKIN: Warm, Dry, normal turgor, no rashes or lesions noted ED Treatment Course - LABORATORY CBC & Chemistry Diagram: 02/23/19 19:46 02/23/19 19:46 Medical Decision Making - Medical Decision Making 02/23/19 19:26 88 yo F with h/o HTN, HLD who p/w cough with yellow sputum production, wheezing , fatigue. Vitals wnl, AF, A&Ox3. Phyiscal exam notable for coarse lung sounds right sided, and diffuse exp rhonci. R/o PNA. DDx: asthma, MITER CUTTER/bronchitis, viral URI. 02/23/19 19:38 ED Course: 02/23/19 20:01 Zithromax, Prednisone, Duoneb 02/23/19 21:16 EKst degree AV block with TWI V1-V4, III, AvF. Nml interval duration, and axis. Absent acute BROCK, STD. Nml R wave progression. Unchanged from interval EKG (02-13-19) 02/23/19 21:18 Laboratory Tests 02/23/19 02/23/19 19:46 19:46 WBC 10.3 H Hgb 12.8 Hct 37.6 Plt Count 346 D Sodium 130 L Chloride 95 L BUN 9.4 Creatinine 0.8 02/23/19 21:57 CXR: Unremarkable Pt. stable for d/c with return precautions Spriometer, and zithromax sent to pharmacy Advised to f/u with PMD *DC/Admit/Observation/Transfer Diagnosis at time of Disposition: Cough with sputum - Prescriptions Prescriptions: Azithromycin [Zithromax Tri-Darrian (3 DAYS) -] 500 mg PO DAILY #3 tablet Spirometers and Accessories [Mistassist] 1 each DAILY #1 each - Referrals - Patient Instructions Printed Discharge Instructions: DI for Acute Bronchitis Additional Instructions: Please return to the emergency department with any new or worsening symptoms or concerns. Please follow up with your primary care physician within 72 hours. Please take Zithromax daily for 3 days. Please use spirometer daily for adequate pulmonary hygeine. - Post Discharge Activity
[2019-02-23] MEDS ORDERED: predniSONE 20 MG TABLET (UD) PO ONE (20:00)
[2019-02-23 20:02] LABS: BASO % 0.6 % (0-2.0); EOS % 5.4 % (0-4.5); HEMATOCRIT 37.6 % (32.4-45.2); HEMOGLOBIN 12.8 GM/dL (10.7-15.3); LYMPH % 12.2 % (8-40); MCH 29.4 pg (25.7-33.7); MCHC 34.1 g/dl (32.0-36.0); MEAN CELL VOLUME 86.2 fl (80-96); MEAN PLT VOLUME 7.7 fl (7.5-11.1); MONO % 8.4 % (3.8-10.2); NEUT % 73.4 % (42.8-82.8); PLATELET COUNT 346 K/MM3 (134-434); RBC 4.36 M/mm3 (3.60-5.2); RDW 13.7 % (11.6-15.6); WHITE BLOOD COUNT 10.3 K/mm3 (4.0-10.0)
[2019-02-23 20:30] LABS: ALBUMIN 3.2 g/dl (3.4-5.0); BILIRUBIN,TOTAL 0.4 mg/dL (0.2-1); BLOOD UREA NITROGEN 9.4 mg/dL (7-18); CALCIUM 9.6 mg/dL (8.5-10.1); CREATININE 0.8 mg/dL (0.55-1.3); POTASSIUM 4.1 mmol/L (3.5-5.1)
[2019-02-23] MEDS ORDERED: SODIUM CHLORIDE 0.9% 500 ML INFUS.BAG IV ONE ×2 (20:34→22:20)
[2019-02-23] MEDS ORDERED: CEFTRIAXONE 1 GM in DEXTROSE 5%-WATER - 50 ML IVPB ONE (22:20)
[2019-02-23] MEDS: AZITHROMYCIN 250 MG TABLET PO ONE ×2 (22:29→23:03)
[2019-02-23] MEDS: ALBUTEROL SO4 2.5/IPRATROPIUM 0.5 INH SOL 3 ML VIAL.NEB. NEB ONE ×2 (22:29→22:52)
[2019-02-23] MEDS ORDERED: CEFTRIAXONE 1 GM/50 ML BAG ONE (22:30)
--- NOTE | 2019-02-23 23:02 | PDOC ---
Documentation entered by Eva Schreiber SCRIBE, acting as scribe for Anna Newton MD. Anna Newton MD: This documentation has been prepared by the Abdoul ochoa Mackenzie, SCRIBE, under my direction and personally reviewed by me in its entirety. I confirm that the documentation accurately reflects all work, treatment, procedures, and medical decision making performed by me. Attending Attestation - Resident Resident Name: Carroll Christina - ED Attending Attestation I have performed the following: I have examined & evaluated the patient, The case was reviewed & discussed with the resident, I agree w/resident's findings & plan - HPI HPI: The patient is an 88 year old female, with a significant PMH HTN and HLD of who presents to the emergency department with a progressively worsening cough for 2 weeks. Patient states the cough is productive of yellow sputum. Patient notes symptoms of wheezing, fatigue, diarrhea, and general malaise. Patient reports administering OTC Diphenhydramine but experienced no relief. The patient denies chest pain, shortness of breath, headache and dizziness. Denies fever, chills, nausea, vomiting, and constipation. Denies dysuria, frequency, urgency and hematuria. Allergies: NKDA Past surgical history: None reported Social history: Denies drug, ETOH, and tobacco use. PCP: None reported. 02/23/19 22:45 - Physicial Exam PE: GENERAL: Awake, alert, and fully oriented, in no acute distress HEAD: No signs of trauma EYES: PERRLA, EOMI, sclera anicteric, conjunctiva clear ENT: Auricles normal inspection, hearing grossly normal, nares patent, oropharynx clear without exudates. Moist mucosa NECK: Normal ROM, supple, no lymphadenopathy, JVD, or masses LUNGS:(+) Bilateral fibrotic crackles. Breath sounds equal, clear to auscultation bilaterally. No wheezes. HEART: Regular rate and rhythm, normal S1 and S2, no murmurs, rubs or gallops ABDOMEN: Soft, nontender, normoactive bowel sounds. No guarding, no rebound. No masses EXTREMITIES: (+)1+ pitting edema bilaterally. Normal range of motion. No clubbing or cyanosis. No cords, erythema, or tenderness NEUROLOGICAL: Cranial nerves II through XII grossly intact. Normal speech, normal gait SKIN: Warm, Dry, normal turgor, no rashes or lesions noted. 02/23/19 22:43 - Medical Decision Making 02/23/19 22:59 Increased lung markings on CXR bilat compared to 2 weeks ago. At that time she was found to have atelectasis. We sent off a BNP and card enzyme blood test to make sure that the crackles we are hearing isn't fluid in the lungs, rather atelectasis - in which case we will give her an incentive spirometer. Pt has a persistent dry cough x 2 weeks. We will treat that with zithromax orally; I will give a dose of ceftriaxone here. Pt is afebrile.
[2019-02-23 23:41] VITALS: BP 139/69; PULSE 90; TEMP 98.3
--- NOTE | 2019-02-24 10:35 | EKG ---
Test Reason : Blood Pressure : / mmHG Vent. Rate : 075 BPM Atrial Rate : 075 BPM P-R Int : 214 ms QRS Dur : 076 ms QT Int : 378 ms P-R-T Axes : 075 -08 -02 degrees QTc Int : 422 ms SINUS RHYTHM WITH 1ST DEGREE A-V BLOCK INFERIOR INFARCT , AGE UNDETERMINED ANTERIOR INFARCT (CITED ON OR BEFORE 13-FEB-2019) ABNORMAL ECG WHEN COMPARED WITH ECG OF 13-FEB-2019 10:42, T WAVE VARIATION Confirmed by FRANDY MURRAY MD ([id number]) on 02/24/2019 10:35:12 AM Referred By: Confirmed By:FRANDY MURRAY MD
== END 2019-02-23 23:52 | disposition home or self-care (01) ==
LOC: JER 17:56
DX: J20.9 Acute bronchitis, unspecified (principal); I10 Essential (primary) hypertension; E78.5 Hyperlipidemia, unspecified; K21.9 Gastro-esophageal reflux disease without esophagitis; F41.9 Anxiety disorder, unspecified
CPT/HCPCS: 36415; 71046-TC-FY; 80053; 82550; 83880; 84484; 85025; 93005; 93010; 96365; 99282-25

== ENCOUNTER 2020-11-03 11:19 | Emergency (ER) | payer OTHER ==
[2020-11-03 12:24] VITALS: BMI 20.9
[2020-11-03] MEDS ORDERED: BAMLANIVIMAB 700 MG in SODIUM CHLORIDE 250 ML IVPB ONE (16:06)
[2020-11-03 17:18] VITALS: TEMP 98
[2020-11-03 19:59] VITALS: BP 140/72; PULSE 63
== END 2020-11-03 19:25 | disposition home or self-care (01) ==
LOC: JER 11:19
DX: U07.1 COVID-19 (principal); R05 Cough
CPT/HCPCS: 71045-TC-FY; 87804; 93005; 93010; 93970-TC; 99285-25; C9803; M0239; Q0239; U0003

== ENCOUNTER 2020-11-08 14:05 | Emergency (ER) | payer OTHER ==
[2020-11-08 14:35] VITALS: TEMP 97.9; BMI 29.2
[2020-11-08 16:44] LABS: BASO % 0.5 % (0-2.0); EOS % 2.8 % (0-4.5); HEMATOCRIT 39.6 % (32.4-45.2); HEMOGLOBIN 13.8 GM/dL (10.7-15.3); LYMPH % 35.2 % (8-40); MCH 29.1 pg (25.7-33.7); MCHC 34.7 g/dl (32.0-36.0); MEAN CELL VOLUME 83.7 fl (80-96); MEAN PLT VOLUME 8.2 fl (7.5-11.1); MONO % 8.4 % (3.8-10.2); NEUT % 53.1 % (42.8-82.8); PLATELET COUNT 237 K/MM3 (134-434); RBC 4.73 M/mm3 (3.60-5.2); RDW 14.5 % (11.6-15.6); WHITE BLOOD COUNT 4.3 K/mm3 (4.0-10.0)
[2020-11-08 16:52] LABS: INR 1.01 (0.83-1.09); PROTHROMBIN TIME (PATIENT) 12.2 SEC (9.7-13.0)
[2020-11-08 16:55] LABS: ACTIVATED PTT 32.1 SECONDS (25.2-36.5)
[2020-11-08 17:06] LABS: CHLORIDE 101 mmol/L (98-107); POTASSIUM 4.6 mmol/L (3.5-5.1); SODIUM 132 mmol/L (136-145)
[2020-11-08 17:09] LABS: ANION GAP 14 MMOL/L (8-16); BLOOD UREA NITROGEN 12.4 mg/dL (7-18); CALCIUM 8.8 mg/dL (8.5-10.1); CO2 17 mmol/L (21-32); GLUCOSE,RANDOM 89 mg/dL (74-106); MAGNESIUM 1.4 mg/dL (1.8-2.4)
[2020-11-08 17:11] LABS: CREATININE 0.8 mg/dL (0.55-1.3)
[2020-11-08 17:12] LABS: SGOT/AST 31 U/L (15-37); SGPT/ALT 23 U/L (13-61)
[2020-11-08 17:13] LABS: BILIRUBIN,TOTAL 0.5 mg/dL (0.2-1); LDH 334 U/L (84-246); TOT PROT 6.8 g/dl (6.4-8.2)
[2020-11-08 17:14] LABS: ALK PHOS 60 U/L (45-117)
[2020-11-08 17:17] LABS: N-TERMINAL BNP 329.8 pg/ml (5-450)
[2020-11-08] MEDS ORDERED: MAGNESIUM 1GM/D5W - 1 GM/100 ML IVPB IVPB ONE (17:48)
[2020-11-08 19:33] LABS: EPI CELLS 15 /uL (0-25.1); HYALINE CASTS 0 /uL (0-3.1); URINE APPEARANCE CLEAR; URINE BACTERIA 524 /uL (0-1359); URINE BILIRUBIN NEGATIVE (NEGATIVE); URINE COLOR YELLOW; URINE GLUCOSE (UA) NEGATIVE (NEGATIVE); URINE KETONE TRACE (NEGATIVE); URINE LEUK ESTERASE TRACE (NEGATIVE); URINE NITRITE NEGATIVE (NEGATIVE); URINE PROTEIN NEGATIVE (NEGATIVE); URINE RBC 3 /uL (0-23.9); URINE UROBILINOGEN 0.2 mg/dL (0.2-1.0); URINE WBC 25 /uL (0-25.8)
[2020-11-09 01:20] VITALS: BP 152/71; PULSE 82
== END 2020-11-09 03:57 | disposition home or self-care (01) ==
LOC: JER 14:05
PROC: 3E033NZ Introduction of Analgesics, Hypnotics, Sedatives into Peripheral Vein, Percutaneous Approach (ICD-10-PCS; principal; 2020-11-08)
DX: R00.2 Palpitations (principal); E83.42 Hypomagnesemia
CPT/HCPCS: 36415; 71046-TC-FY; 80053; 81003; 82550; 82728; 83615; 83735; 83880; 84484; 85025; 85384; 85610; 85730; 86140; 87086; 87186; 93005; 93010; 99285-25

== ENCOUNTER 2021-03-13 03:43 | Inpatient (IN) | payer OTHER ==
[2021-03-13] MEDS ORDERED: SODIUM CHLORIDE 0.9% 500 ML INFUS.BAG IV ONE (04:39)
[2021-03-13] MEDS ORDERED: MECLIZINE HCL 25 MG TABLET (FP) PO ONE ×2 (04:39→09:04)
[2021-03-13] MEDS ORDERED: MECLIZINE HCL 25 MG TABLET (FP) ONE ×2 (04:52→09:29)
[2021-03-13 06:07] LABS: BASO % 0.9 % (0-2.0); EOS % 8.9 % (0-4.5); HEMATOCRIT 40.8 % (32.4-45.2); HEMOGLOBIN 13.4 GM/dL (10.7-15.3); LYMPH % 19.4 % (8-40); MCH 28.5 pg (25.7-33.7); MEAN CELL VOLUME 86.5 fl (80-96); MEAN PLT VOLUME 7.9 fl (7.5-11.1); NEUT % 64.8 % (42.8-82.8); PLATELET COUNT 221 10^3/uL (134-434); RBC 4.71 M/mm3 (3.60-5.2); RDW 14.2 % (11.6-15.6); WHITE BLOOD COUNT 4.8 K/mm3 (4.0-10.0)
[2021-03-13 06:25] LABS: CHLORIDE 105 mmol/L (98-107); SODIUM 139 mmol/L (136-145)
[2021-03-13 06:27] LABS: ALBUMIN 3.3 g/dl (3.4-5.0); ANION GAP 5 MMOL/L (8-16); CALCIUM 8.8 mg/dL (8.5-10.1); CO2 29 mmol/L (21-32)
[2021-03-13 06:28] LABS: BLOOD UREA NITROGEN 13.8 mg/dL (7-18); GLUCOSE,RANDOM 117 mg/dL (74-106)
[2021-03-13 06:30] LABS: SGPT/ALT 16 U/L (13-61)
[2021-03-13 06:31] LABS: CREATININE 0.9 mg/dL (0.55-1.3); SGOT/AST 12 U/L (15-37)
[2021-03-13 06:32] LABS: BILIRUBIN,TOTAL 0.4 mg/dL (0.2-1); TOT PROT 6.6 g/dl (6.4-8.2)
[2021-03-13 06:33] LABS: ALK PHOS 69 U/L (45-117)
[2021-03-13 08:01] LABS: EPI CELLS >36 /uL (0-25.1); HYALINE CASTS 1 /uL (0-3.1); PH,URINE 6.5 (5.0-8.0); URINE APPEARANCE CLEAR; URINE BACTERIA 89 /uL (0-1359); URINE BILIRUBIN NEGATIVE (NEGATIVE); URINE COLOR YELLOW; URINE GLUCOSE (UA) NEGATIVE (NEGATIVE); URINE KETONE NEGATIVE (NEGATIVE); URINE LEUK ESTERASE NEGATIVE (NEGATIVE); URINE NITRITE NEGATIVE (NEGATIVE); URINE PROTEIN NEGATIVE (NEGATIVE); URINE RBC 14 /uL (0-23.9); URINE UROBILINOGEN 0.2 mg/dL (0.2-1.0); URINE WBC 41 /uL (0-25.8)
[2021-03-13] MEDS ORDERED: ACETAMINOPHEN 500 MG TABLET (FP) PO ONE (09:04)
[2021-03-13] MEDS ORDERED: ACETAMINOPHEN 325 MG TABLET (FP) ONE (09:29)
[2021-03-13] MEDS ORDERED: ACETAMINOPHEN 325 MG TABLET (FP) PO PRN (13:55)
[2021-03-13] MEDS: LISINOPRIL 10 MG TABLET PO SCH (21:55)
[2021-03-13] MEDS: ATORVASTATIN CA 10 MG TABLET (FP) PO SCH (21:55)
[2021-03-13 22:49] VITALS: BMI 29.3
[2021-03-14] MEDS ORDERED: PT OWN MED DRAWER 7, Y5N ONE ×2 (09:41→21:23)
[2021-03-14] MEDS: MECLIZINE HCL 25 MG TABLET (FP) PO SCH (09:46)
[2021-03-14] MEDS: CHOLECALCIFEROL (VIT D3) 1,000 UNIT (25 MCG) TABLET PO SCH (09:46)
[2021-03-14] MEDS: ATENOLOL 50 MG TABLET (FP) PO SCH (09:46)
[2021-03-14] MEDS: POLYETHYLENE GLYCOL (HEALTHYLAX) 3350 17 GM PACKET PO SCH (09:46)
[2021-03-14] MEDS: LISINOPRIL 10 MG TABLET PO SCH ×2 (09:46→21:28)
[2021-03-14] MEDS: CYANOCOBALAMIN 1,000 MCG TABLET (FP) PO SCH (09:46)
[2021-03-14] MEDS: ENOXAPARIN NA (PORCINE) 40 MG/0.4 ML DISP.SYRIN SQ SCH (09:46)
[2021-03-14] MEDS: PANTOPRAZOLE 20 MG TABLET PO SCH (09:46)
[2021-03-14] MEDS: AMITRIPTYLINE HCL 25 MG TABLET PO SCH (21:28)
[2021-03-14] MEDS: ATORVASTATIN CA 10 MG TABLET (FP) PO SCH (21:28)
[2021-03-15] MEDS ORDERED: PT OWN MED DRAWER 7, Y5N ONE ×2 (10:01→20:57)
[2021-03-15] MEDS: MECLIZINE HCL 25 MG TABLET (FP) PO SCH (10:08)
[2021-03-15] MEDS: POLYETHYLENE GLYCOL (HEALTHYLAX) 3350 17 GM PACKET PO SCH (10:08)
[2021-03-15] MEDS: ATENOLOL 50 MG TABLET (FP) PO SCH (10:09)
[2021-03-15] MEDS: LISINOPRIL 10 MG TABLET PO SCH ×2 (10:09→21:04)
[2021-03-15] MEDS: CHOLECALCIFEROL (VIT D3) 1,000 UNIT (25 MCG) TABLET PO SCH (10:09)
[2021-03-15] MEDS: CYANOCOBALAMIN 1,000 MCG TABLET (FP) PO SCH (10:09)
[2021-03-15] MEDS: PANTOPRAZOLE 20 MG TABLET PO SCH (10:09)
[2021-03-15] MEDS: ENOXAPARIN NA (PORCINE) 40 MG/0.4 ML DISP.SYRIN SQ SCH (10:10)
[2021-03-15] MEDS: AMITRIPTYLINE HCL 25 MG TABLET PO SCH (21:04)
[2021-03-15] MEDS: ATORVASTATIN CA 10 MG TABLET (FP) PO SCH (21:04)
[2021-03-16] MEDS ORDERED: PT OWN MED DRAWER 7, Y5N ONE ×2 (09:24→20:51)
[2021-03-16] MEDS: ATENOLOL 50 MG TABLET (FP) PO SCH (09:26)
[2021-03-16] MEDS: CHOLECALCIFEROL (VIT D3) 1,000 UNIT (25 MCG) TABLET PO SCH (09:26)
[2021-03-16] MEDS: MECLIZINE HCL 25 MG TABLET (FP) PO SCH (09:27)
[2021-03-16] MEDS: CYANOCOBALAMIN 1,000 MCG TABLET (FP) PO SCH (09:27)
[2021-03-16] MEDS: LISINOPRIL 10 MG TABLET PO SCH ×2 (09:27→21:11)
[2021-03-16] MEDS: PANTOPRAZOLE 20 MG TABLET PO SCH (09:27)
[2021-03-16] MEDS: ENOXAPARIN NA (PORCINE) 40 MG/0.4 ML DISP.SYRIN SQ SCH (09:27)
[2021-03-16] MEDS: POLYETHYLENE GLYCOL (HEALTHYLAX) 3350 17 GM PACKET PO SCH (09:28)
[2021-03-16] MEDS: AMITRIPTYLINE HCL 25 MG TABLET PO SCH (21:11)
[2021-03-16] MEDS: ATORVASTATIN CA 10 MG TABLET (FP) PO SCH (21:11)
[2021-03-17] MEDS: CHOLECALCIFEROL (VIT D3) 1,000 UNIT (25 MCG) TABLET PO SCH (09:28)
[2021-03-17] MEDS: MECLIZINE HCL 25 MG TABLET (FP) PO SCH (09:28)
[2021-03-17] MEDS: POLYETHYLENE GLYCOL (HEALTHYLAX) 3350 17 GM PACKET PO SCH (09:28)
[2021-03-17] MEDS: ENOXAPARIN NA (PORCINE) 40 MG/0.4 ML DISP.SYRIN SQ SCH (09:28)
[2021-03-17] MEDS: LISINOPRIL 10 MG TABLET PO SCH ×2 (09:28→22:46)
[2021-03-17] MEDS: PANTOPRAZOLE 20 MG TABLET PO SCH (09:28)
[2021-03-17] MEDS: ATENOLOL 50 MG TABLET (FP) PO SCH (09:28)
[2021-03-17] MEDS ORDERED: PT OWN MED DRAWER 7, Y5N ONE ×2 (09:30→22:44)
[2021-03-17] MEDS: CYANOCOBALAMIN 1,000 MCG TABLET (FP) PO SCH (09:30)
[2021-03-17] MEDS: AMOX TR/POT CLAV 875MG/125MG TABLETS (FP) PO SCH ×2 (11:23→18:10)
[2021-03-17] MEDS: AMITRIPTYLINE HCL 25 MG TABLET PO SCH (22:45)
[2021-03-17] MEDS: ATORVASTATIN CA 10 MG TABLET (FP) PO SCH (22:46)
[2021-03-18] MEDS ORDERED: PT OWN MED DRAWER 7, Y5N ONE (10:11)
[2021-03-18] MEDS: POLYETHYLENE GLYCOL (HEALTHYLAX) 3350 17 GM PACKET PO SCH (10:19)
[2021-03-18] MEDS: ENOXAPARIN NA (PORCINE) 40 MG/0.4 ML DISP.SYRIN SQ SCH (10:19)
[2021-03-18] MEDS: CYANOCOBALAMIN 1,000 MCG TABLET (FP) PO SCH (10:20)
[2021-03-18] MEDS: AMOX TR/POT CLAV 875MG/125MG TABLETS (FP) PO SCH ×2 (10:20→17:04)
[2021-03-18] MEDS: CHOLECALCIFEROL (VIT D3) 1,000 UNIT (25 MCG) TABLET PO SCH (10:20)
[2021-03-18] MEDS: PANTOPRAZOLE 20 MG TABLET PO SCH (10:20)
[2021-03-18] MEDS: MECLIZINE HCL 25 MG TABLET (FP) PO SCH (10:20)
[2021-03-18] MEDS: ATENOLOL 50 MG TABLET (FP) PO SCH (10:20)
[2021-03-18] MEDS: LISINOPRIL 10 MG TABLET PO SCH (10:20)
[2021-03-18 22:36] VITALS: BP 133/74; PULSE 88; TEMP 98.3
== END 2021-03-18 21:15 | DRG 149 ==
LOC: JER 03:43 → JERBED 13:12 → INTOOBSV 13:12 → UNDOADMOB 13:12 → JERBED 13:56 → UNDOADMOB 13:56 → J6S 21:02 → JERBED 21:02 → J6S 03-15 13:52 → JERBED 03-15 13:52 → INTOOBSV 03-15 13:52 → OBSVTOIN 03-15 13:52
PROVIDERS: ADMIT Internal Medicine; ATTEND Internal Medicine
DX: R42 Dizziness and giddiness (principal); I10 Essential (primary) hypertension; E78.5 Hyperlipidemia, unspecified; K21.9 Gastro-esophageal reflux disease without esophagitis; F41.9 Anxiety disorder, unspecified; Z85.038 Personal history of other malignant neoplasm of large intestine; R26.2 Difficulty in walking, not elsewhere classified
CPT/HCPCS: 36415; 70450-TC; 70496-TC; 70498-TC; 71250-TC; 72141-TC; 80053; 81003; 82550; 82962; 84443; 84484; 85025; 93005; 93010; 97116-GP; 97162-GP; 99285-25; C9803; Q9967; U0003; U0005

== ENCOUNTER 2021-05-21 13:21 | Inpatient (IN) | payer OTHER ==
[2021-05-21] MEDS ORDERED: MECLIZINE HCL 25 MG TABLET (FP) PO ONE (14:25)
[2021-05-21] MEDS ORDERED: MECLIZINE HCL 25 MG TABLET (FP) ONE (14:29)
[2021-05-21 14:58] LABS: BASO % 0.9 % (0-2.0); EOS % 9.3 % (0-4.5); HEMATOCRIT 36.6 % (32.4-45.2); HEMOGLOBIN 12.5 GM/dL (10.7-15.3); LYMPH % 23.9 % (8-40); MCH 29.1 pg (25.7-33.7); MCHC 34.3 g/dl (32.0-36.0); MEAN CELL VOLUME 84.8 fl (80-96); MEAN PLT VOLUME 7.6 fl (7.5-11.1); MONO % 5.9 % (3.8-10.2); PLATELET COUNT 237 10^3/uL (134-434); RBC 4.31 M/mm3 (3.60-5.2); RDW 15.1 % (11.6-15.6); WHITE BLOOD COUNT 5.7 K/mm3 (4.0-10.0)
[2021-05-21 15:01] LABS: CHLORIDE 99 mmol/L (98-107); SODIUM 132 mmol/L (136-145)
[2021-05-21 15:02] LABS: CALCIUM 9.5 mg/dL (8.5-10.1)
[2021-05-21 15:03] LABS: ALBUMIN 3.3 g/dl (3.4-5.0); ANION GAP 6 MMOL/L (8-16); BLOOD UREA NITROGEN 20.6 mg/dL (7-18); CO2 27 mmol/L (21-32); GLUCOSE,RANDOM 104 mg/dL (74-106)
[2021-05-21 15:06] LABS: CREATININE 1.1 mg/dL (0.55-1.3); SGOT/AST 11 U/L (15-37); SGPT/ALT 23 U/L (13-61)
[2021-05-21 15:08] LABS: BILIRUBIN,TOTAL 0.4 mg/dL (0.2-1); TOT PROT 6.4 g/dl (6.4-8.2)
[2021-05-21 15:09] LABS: ALK PHOS 65 U/L (45-117)
[2021-05-21 15:55] LABS: URINE APPEARANCE CLOUDY; URINE BILIRUBIN NEGATIVE (NEGATIVE); URINE COLOR YELLOW; URINE GLUCOSE (UA) NEGATIVE (NEGATIVE); URINE KETONE NEGATIVE (NEGATIVE); URINE LEUK ESTERASE 2+ (NEGATIVE); URINE NITRITE NEGATIVE (NEGATIVE); URINE PROTEIN NEGATIVE (NEGATIVE); URINE UROBILINOGEN 0.2 mg/dL (0.2-1.0)
[2021-05-21] MEDS ORDERED: CEFTRIAXONE 1,000 MG in DEXTROSE 5%-WATER - 50 ML IVPB ONE (16:07)
[2021-05-21] MEDS ORDERED: CEFTRIAXONE 1 GM/50 ML BAG ONE (16:27)
[2021-05-21 19:19] LABS: EPI CELLS 152.2 /uL (0-25.1); HYALINE CASTS 2.03 /uL (0-3.1); URINE BACTERIA 1237.6 /uL (0-1359); URINE WBC 140.7 /uL (0-25.8)
[2021-05-21] MEDS ORDERED: MECLIZINE HCL 25 MG TABLET (FP) PO PRN (20:19)
[2021-05-21] MEDS ORDERED: ATORVASTATIN CA 10 MG TABLET (FP) ONE (22:22)
[2021-05-21] MEDS ORDERED: LISINOPRIL 5 MG TABLET ONE (22:22)
[2021-05-21] MEDS: ATORVASTATIN CA 10 MG TABLET (FP) PO SCH (22:31)
[2021-05-21] MEDS: LISINOPRIL 10 MG TABLET PO SCH (22:32)
[2021-05-22 03:00] VITALS: BMI 28.0
[2021-05-22] MEDS ORDERED: DEXTROSE 5%-WATER - 50 ML IVPB ONE (11:45)
[2021-05-22] MEDS ORDERED: cefTRIAXone SODIUM 1 GM VIAL ONE (11:45)
[2021-05-22] MEDS: ATENOLOL 50 MG TABLET (FP) PO SCH (11:47)
[2021-05-22] MEDS: CEFTRIAXONE 1 GM in DEXTROSE 5%-WATER - 50 ML IVPB SCH (11:47)
[2021-05-22] MEDS: LISINOPRIL 10 MG TABLET PO SCH ×2 (11:48→21:27)
[2021-05-22] MEDS: PANTOPRAZOLE 20 MG TABLET PO SCH (11:48)
[2021-05-22] MEDS: ATORVASTATIN CA 10 MG TABLET (FP) PO SCH (21:27)
[2021-05-23] MEDS ORDERED: DEXTROSE 5%-WATER - 50 ML IVPB ONE (09:09)
[2021-05-23] MEDS ORDERED: cefTRIAXone SODIUM 1 GM VIAL ONE (09:09)
[2021-05-23] MEDS: LISINOPRIL 10 MG TABLET PO SCH ×2 (09:14→21:32)
[2021-05-23] MEDS: PANTOPRAZOLE 20 MG TABLET PO SCH (09:14)
[2021-05-23] MEDS: CEFTRIAXONE 1 GM in DEXTROSE 5%-WATER - 50 ML IVPB SCH (09:14)
[2021-05-23] MEDS: ATENOLOL 50 MG TABLET (FP) PO SCH (09:14)
[2021-05-23] MEDS: ENOXAPARIN NA (PORCINE) 40 MG/0.4 ML DISP.SYRIN SQ SCH (12:59)
[2021-05-23] MEDS: ATORVASTATIN CA 10 MG TABLET (FP) PO SCH (21:32)
[2021-05-23] MEDS: MELATONIN 5 MG TABLETS PO PRN (21:32)
[2021-05-24] MEDS ORDERED: DEXTROSE 5%-WATER - 50 ML IVPB ONE (09:27)
[2021-05-24] MEDS ORDERED: cefTRIAXone SODIUM 1 GM VIAL ONE (09:27)
[2021-05-24] MEDS: CEFTRIAXONE 1 GM in DEXTROSE 5%-WATER - 50 ML IVPB SCH (09:35)
[2021-05-24] MEDS: LISINOPRIL 10 MG TABLET PO SCH ×2 (09:35→21:34)
[2021-05-24] MEDS: ENOXAPARIN NA (PORCINE) 40 MG/0.4 ML DISP.SYRIN SQ SCH (09:35)
[2021-05-24] MEDS: PANTOPRAZOLE 20 MG TABLET PO SCH (09:35)
[2021-05-24] MEDS: ATENOLOL 50 MG TABLET (FP) PO SCH (09:35)
[2021-05-24 15:43] LABS: BASO % 0.8 % (0-2.0); EOS % 8.4 % (0-4.5); HEMATOCRIT 35.8 % (32.4-45.2); HEMOGLOBIN 12.3 GM/dL (10.7-15.3); LYMPH % 27.3 % (8-40); MCH 29.2 pg (25.7-33.7); MCHC 34.3 g/dl (32.0-36.0); MEAN CELL VOLUME 85.1 fl (80-96); MEAN PLT VOLUME 7.9 fl (7.5-11.1); MONO % 6.4 % (3.8-10.2); NEUT % 57.1 % (42.8-82.8); PLATELET COUNT 225 10^3/uL (134-434)
[2021-05-24 16:10] LABS: ALBUMIN 2.8 g/dl (3.4-5.0); BLOOD UREA NITROGEN 14.9 mg/dL (7-18)
[2021-05-24 16:13] LABS: CREATININE 0.9 mg/dL (0.55-1.3)
[2021-05-24 16:15] LABS: BILIRUBIN,TOTAL 0.3 mg/dL (0.2-1); TOT PROT 5.7 g/dl (6.4-8.2)
[2021-05-24] MEDS: MELATONIN 5 MG TABLETS PO PRN (21:34)
[2021-05-24] MEDS: ATORVASTATIN CA 10 MG TABLET (FP) PO SCH (21:35)
[2021-05-25] MEDS ORDERED: cefTRIAXone SODIUM 1 GM VIAL ONE (09:15)
[2021-05-25] MEDS ORDERED: DEXTROSE 5%-WATER - 50 ML IVPB ONE (09:15)
[2021-05-25] MEDS: LISINOPRIL 10 MG TABLET PO SCH (09:18)
[2021-05-25] MEDS: ATENOLOL 50 MG TABLET (FP) PO SCH (09:18)
[2021-05-25] MEDS: ENOXAPARIN NA (PORCINE) 40 MG/0.4 ML DISP.SYRIN SQ SCH (09:18)
[2021-05-25] MEDS: CEFTRIAXONE 1 GM in DEXTROSE 5%-WATER - 50 ML IVPB SCH (09:18)
[2021-05-25] MEDS: PANTOPRAZOLE 20 MG TABLET PO SCH (09:18)
[2021-05-25 10:27] VITALS: BP 112/65; PULSE 72; TEMP 98.2
== END 2021-05-25 13:13 | DRG 690 ==
LOC: JER 13:21 → JERBED 16:06 → J6S 05-22 00:53
PROVIDERS: ADMIT Internal Medicine; ATTEND Internal Medicine
DX: N39.0 Urinary tract infection, site not specified (principal); I10 Essential (primary) hypertension; E78.5 Hyperlipidemia, unspecified; R42 Dizziness and giddiness; R26.2 Difficulty in walking, not elsewhere classified; Z85.038 Personal history of other malignant neoplasm of large intestine
CPT/HCPCS: 36415; 80053; 81003; 84484; 85025; 93005; 93010; 97116-GP; 97162-GP; 99285-25; C9803; U0003; U0005